=== PATIENT | female | born 1940 | race Caucasian/White ===

== ENCOUNTER → 2017-07-19 | Outpatient (CLI) | payer OTHER | LOC: CIMAGING 08:49 | PROVIDERS: ATTEND Family Medicine | DX: I51.7 Cardiomegaly (principal); K74.60 Unspecified cirrhosis of liver; K76.0 Fatty (change of) liver, not elsewhere classified; R18.8 Other ascites | CPT/HCPCS: 71046-PO; 76700-PO ==

== ENCOUNTER → 2017-10-19 | Outpatient (CLI) | payer OTHER ==
[~2017-10-19] MED LIST: GADOBUTROL 10 ML VIAL IVP ONE
== END ==
LOC: FIMAGING 10:26
PROVIDERS: ATTEND Internal Medicine Hematology & Oncology
DX: Z12.39 Encounter for other screening for malignant neoplasm of breast (principal); C78.5 Secondary malignant neoplasm of large intestine and rectum
CPT/HCPCS: 0159T; A9585; C8908

== ENCOUNTER 2017-11-01 07:31 | Day surgery (SDC) | payer OTHER ==
[~2017-11-01 07:31] MED LIST changes: -GADOBUTROL 10 ML VIAL IVP ONE; +ceFAZolin 2 GM/SWFI 2 GM/20 ML SYR IVP ONE
[2017-11-01] MEDS ORDERED: fentaNYL 100 MCG/2 ML INJ IVP PRN (09:00)
[2017-11-01] MEDS ORDERED: HEPARIN 10,000 UNIT/10 ML MDV (1,000 UNIT/ML) IVP PRN (09:00)
[2017-11-01] MEDS ORDERED: GLUCAGON HCL 1 MG VIAL IVP PRN (09:00)
[2017-11-01] MEDS ORDERED: MIDAZOLAM 2 MG/2 ML VIAL IVP PRN (09:00)
[2017-11-01] MEDS ORDERED: PROTAMINE SULFATE 50 MG/5 ML VIAL IVP PRN (09:00)
[2017-11-01] MEDS ORDERED: ALTEPLASE 2 MG VIAL IVP PRN (09:00)
[2017-11-01] MEDS ORDERED: FLUMAZENIL 0.5 MG/5 ML MDV IVP PRN (09:00)
[2017-11-01] MEDS ORDERED: MEPERIDINE 25 MG/ML SYR IVP PRN (09:00)
[2017-11-01] MEDS ORDERED: NALOXONE HCL 0.4 MG/ML INJ IVP PRN (09:00)
[2017-11-01] MEDS ORDERED: NS 1,000 ML IV SCH (09:00)
[2017-11-01 10:31] LABS: INR 1.11 (0.83-1.16); PROTIME(PATIENT) 14.5 SEC (12.0-15.0)
[2017-11-01] MEDS ORDERED: ceFAZolin 2 GM/SWFI 20 ML SYR IVP ONE ×2 (10:32→12:27)
[2017-11-01] MEDS ORDERED: fentaNYL 100 MCG/2 ML INJ ONE (10:47)
[2017-11-01] MEDS ORDERED: ONDANSETRON 4 MG/2 ML VIAL ONE (10:47)
[2017-11-01] MEDS ORDERED: MIDAZOLAM 2 MG/2 ML VIAL ONE ×2 (10:47)
--- NOTE | 2017-11-01 11:20 | PDPROPOC ---
Sedation Plan of Care Sedation Plan of Care: vital signs stable, mental status noted, patient educated of risks, benefits, alternatives, patient can tolerate sedation ASA Classification: ASA 3 Mallampati Score: Class 3 Mallampati Reference Image:
--- NOTE | 2017-11-01 11:21 | PDGENHP ---
History & Physical Chief Complaint: recurrent ascites History of Present Illness: metastatic ca Relevant Physical Exam: distended, nontender abdomen Cardiorespiratory Assessment: rrr, nl wob
[2017-11-01] MEDS ORDERED: LIDOCAINE 1% 300 MG/30 ML SDV ONE (11:36)
[2017-11-01] MEDS ORDERED: ONDANSETRON 4 MG/2 ML VIAL IVP ONE (11:38)
[2017-11-01] MEDS ORDERED: ACETAMINOPHEN 325 MG TAB PO PRN (11:50)
--- NOTE | 2017-11-01 11:53 | PDRADPN ---
Radiology Procedure Note Date of Procedure: 11/01/17 Radiologist: Demetrius Matos Anesthesia: IV Sedation Pre-op Diagnosis: malignant ascites Post-op Diagnosis: same Indication: palliative Procedure: abdominal pleurx Finding(s): large vol ascites. accessed RLQ Inf/Abcess present in the surg proc area at time of surgery?: No EBL: Minimal Complications: none Drains: Other (pleurx)
[2017-11-01] MEDS ORDERED: ALBUMIN 25% 200 ML IV ONE (12:24)
[2017-11-01 14:05] VITALS: BP 93/43
== END 2017-11-01 13:55 | disposition home or self-care (01) ==
LOC: FIMAGING 07:31
PROVIDERS: ATTEND Internal Medicine Hematology & Oncology
PROC: 0W9930Z Drainage of Right Pleural Cavity with Drainage Device, Percutaneous Approach (ICD-10-PCS; principal; 2017-11-01 12:20)
DX: R18.0 Malignant ascites (principal)
CPT/HCPCS: C2617; J0690; J2250; J2405; J3010; P9047

== ENCOUNTER 2017-11-15 17:26 | Inpatient (IN) | payer OTHER ==
[2017-11-15] MEDS ORDERED: NS 1,000 ML IV ONE (18:22)
--- NOTE | 2017-11-15 18:22 | EDPHY ---
HPI/HX/ROS/PE/MDM Narrative: CHIEF COMPLAINT: High potassium HPI: The patient is a 76 y/o female with a history of metastatic breast cancer (on oral chemotherapy), cirrhosis, and diabetes arriving at the request of her oncologist, Dr. Rico, for a potassium of 6.3. Patient's daughter denies history of prior potassium problems. For the past several days the patient has felt more tired than normal and has had diarrhea, which they attributed to the chemotherapy. Today the patient went to a routine nursing appointment when the nurse noticed that the patient had high potassium. While in the waiting room at the emergency department, the patient went to the bathroom and subsequently became pale, cold, diaphoretic, and lost some of her vision. Per her daughter, the patient is normally talkative and was not complaining of any pain or abnormal symptoms prior to arrival. Patient's daughter denies patient receiving any new or abnormal medications. At the time of my examination, the patient states she is tired but not in pain. Denies chest pain, shortness of breath, abdominal pain, fever. REVIEW OF SYSTEMS: Aside from elements discussed in the HPI, a comprehensive 10-point review of systems was reviewed and is negative. PMH: Metastatic breast cancer, abdominal wall mets, non-alcoholic cirrhosis, diabetes SOCIAL HISTORY: Daughter at bedside, lives in [place], retired PHYSICAL EXAM: General: Patient is lethargic, follows commands but is slow to respond. ENT: 3mm reactive pupils. ENT inspection normal. Neck: Normal inspection. Full range of motion. Respiratory: No respiratory distress. Breath sounds normal bilaterally. Cardiovascular: Regular rate and rhythm. Strong peripheral pulses. Normal cap refill. Abdomen: The abdomen is nontender to palpation. There are no peritoneal signs. There are normal bowel sounds. Back: Normal to inspection. No tenderness to palpation. Skin: Pale. No rash. Warm and dry. Extremities: Normal appearance. Full range of motion. Neuro: Oriented x3. Normal motor function. Normal sensory function. ED Course: 1812: EKG was ordered and interpreted by myself. Please see [email or web address] system for official reading. 1832: Patient is in acute renal failure (creatinine of 2.7) with a high potassium of 5.6 and glucose of 54; 12.5gm IV D5 and 1L IV NS administered. 0: I spoke with radiologist who reports patient's head CT is negative. 194: Reassessed patient, she is now having a normal conversation with her daughter. Patient and her daughter are comfortable with plan for admission. 1950: Consulted with hospitalist service, Dr. Bravo accepts admission of this patient. MDM: This patient presents with acute renal failure and likely resultant hyperkalemia , thankfully without ECG changes. Her daughter noted a quite severe change in mental status on arrival to the ED which prompted adminstration of D50 and a CTH which is thankfully negative. Patient seemed to respond to IVNS and now appears much clearer. Daughter states patient had meeting with her oncologist and wants to be DNR/DNI but does not have paperwork with her. - Data Points Imaging Results: Imaging Impressions Head CT 11/15/17 18:33 Impression: 1. No acute intracranial findings. If symptoms persist and clinical suspicion warrants, consider MRI. 2. Diffuse cerebral atrophy, with periventricular and subcortical low attenuation consistent with chronic microvascular ischemic gliosis. Findings discussed with Hudson Lamar M.D., on November 15, 2017 at 1900. Chest X-Ray 11/15/17 19:01 Impression: Mild peribronchial thickening, which could be related to minimal fluid overload or bronchitis/airways disease. Imaging: Discussed imaging studies w/ feed mixer Radiologist, I viewed and interpreted images myself Laboratory Results: Laboratory Results 11/15/17 18:26 11/15/17 18:26 11/15/17 11/15/17 11/15/17 18:31 18:26 18:26 WBC RBC Hgb POC Hgb 11.6 gm/dL L gm/dL (12.6-16.3) Hct POC Hct 34 % L % (38-47) MCV MCH MCHC RDW Plt Count MPV Neut % (Auto) Lymph % (Auto) [place] % (Auto) Eos % (Auto) Baso % (Auto) Nucleat RBC Rel Count Absolute Neuts (auto) Absolute Lymphs (auto) Absolute Monos (auto) Absolute Eos (auto) Absolute Basos (auto) Absolute Nucleated RBC Immature Gran % Seg Neutrophils % Band Neutrophils % Lymphocytes % Monocytes % Eosinophils % Basophils % Metamyelocytes % Myelocytes % Promyelocytes % Blast Cells % Immature Gran # Absolute Seg Neuts Absolute Band Neuts Absolute Lymphocytes Absolute Monocytes Absolute Eosinophils Absolute Basophils Absolute Metamyelocyte Absolute Myelocytes Absolute Promyelocytes Absolute Plasma Cells Absolute Blast Cells Plasma Cells % Platelet Estimate Polychromasia Oval Macrocytes PT 13.9 SEC SEC (12.0-15.0) INR 1.05 (0.83-1.16) APTT 27.7 SEC SEC (23.0-38.0) POC Sodium 135 mEq/L mEq/L (135-145) Sodium 133 mEq/L L mEq/L (135-145) POC Potassium 5.6 mEq/L H mEq/L (3.3-5.0) Potassium 6.2 mEq/L H mEq/L (3.3-5.0) POC Chloride 104 mEq/L mEq/L (97-110) Chloride 103 mEq/L mEq/L (97-110) Carbon Dioxide 20 mEq/l L mEq/l (22-31) Anion Gap 10 mEq/L mEq/L (8-16) POC BUN 76 mg/dL H mg/dL (7-23) BUN 74 mg/dL H mg/dL (7-23) Creatinine 2.4 mg/dL H mg/dL (0.6-1.0) POC Creatinine 2.7 mg/dL H mg/dL (0.6-1.0) Estimated GFR 20 Glucose 50 mg/dL L mg/dL (70-100) POC Glucose 54 mg/dL L mg/dL (70-100) Calcium 8.2 mg/dL L mg/dL (8.5-10.4) 11/15/17 18:26 WBC 2.50 10^3/uL L 10^3/uL (3.80-9.50) RBC 3.41 10^6/uL L 10^6/uL (4.18-5.33) Hgb 11.9 g/dL L g/dL (12.6-16.3) POC Hgb Hct 35.4 % L % (38.0-47.0) POC Hct MCV 103.8 fL H fL (81.5-99.8) MCH 34.9 pg H pg (27.9-34.1) MCHC 33.6 g/dL g/dL (32.4-36.7) RDW 14.6 % % (11.5-15.2) Plt Count 192 10^3/uL 10^3/uL (150-400) MPV 10.6 fL fL (8.7-11.7) Neut % (Auto) 49.2 % % (39.3-74.2) Lymph % (Auto) 46.8 % H % (15.0-45.0) [place] % (Auto) 2.0 % L % (4.5-13.0) Eos % (Auto) 0.0 % L % (0.6-7.6) Baso % (Auto) 1.2 % % (0.3-1.7) Nucleat RBC Rel Count 0.0 % % (0.0-0.2) Absolute Neuts (auto) 1.23 10^3/uL L 10^3/uL (1.70-6.50) Absolute Lymphs (auto) 1.17 10^3/uL 10^3/uL (1.00-3.00) Absolute Monos (auto) 0.05 10^3/uL L 10^3/uL (0.30-0.80) Absolute Eos (auto) 0.00 10^3/uL L 10^3/uL (0.03-0.40) Absolute Basos (auto) 0.03 10^3/uL 10^3/uL (0.02-0.10) Absolute Nucleated RBC 0.00 10^3/uL 10^3/uL (0-0.01) Immature Gran % 0.8 % % (0.0-1.1) Seg Neutrophils % 49.5 % % Band Neutrophils % 0 % % Lymphocytes % 44.5 % % Monocytes % 2.0 % % Eosinophils % 0 % % Basophils % 4.0 % % Metamyelocytes % 0 % % Myelocytes % 0 % % Promyelocytes % 0 % % Blast Cells % 0 % % Immature Gran # 0.02 10^3/uL 10^3/uL (0.00-0.10) Absolute Seg Neuts 1.24 10^/uL L 10^/uL (1.70-6.50) Absolute Band Neuts 0.00 10^3/uL 10^3/uL (0.00-0.70) Absolute Lymphocytes 1.11 10^3/uL 10^3/uL (1.00-3.00) Absolute Monocytes 0.05 10^3/uL L 10^3/uL (0.30-0.80) Absolute Eosinophils 0.00 10^3/uL L 10^3/uL (0.03-0.40) Absolute Basophils 0.10 10^3/uL 10^3/uL (0.02-0.10) Absolute Metamyelocyte 0.00 10^3/mL 10^3/mL (0.00-0.00) Absolute Myelocytes 0.00 10^3/mL 10^3/mL (0.00-0.00) Absolute Promyelocytes 0.00 10^3/uL 10^3/uL (0.00-0.00) Absolute Plasma Cells 0.00 10^3/uL 10^3/uL (0.00-0.00) Absolute Blast Cells 0.00 10^3/uL 10^3/uL (0.00-0.00) Plasma Cells % 0 % % Platelet Estimate ADEQUATE (ADEQ) Polychromasia 1+ H Oval Macrocytes 1+ H PT INR APTT POC Sodium Sodium POC Potassium Potassium POC Chloride Chloride Carbon Dioxide Anion Gap POC BUN BUN Creatinine POC Creatinine Estimated GFR Glucose POC Glucose Calcium Medications Given: Discontinued Medications Dextrose (Dextrose 50% Syringe) 12.5 gm IVP EDNOW ONE Stop: 11/15/17 18:36 Last Admin: 11/15/17 18:45 Dose: 12.5 gm Sodium Chloride (Ns) 1,000 mls @ 0 mls/hr IV EDNOW ONE; Wide Open PRN Reason: Protocol Stop: 11/15/17 18:23 Last Admin: 11/15/17 18:45 Dose: 1,000 mls Point of Care Test Results: Chemistry 11/15/17 18:31 POC Sodium 135 mEq/L mEq/L (135-145) POC Potassium 5.6 mEq/L H mEq/L (3.3-5.0) POC Chloride 104 mEq/L mEq/L (97-110) POC BUN 76 mg/dL H mg/dL (7-23) POC Creatinine 2.7 mg/dL H mg/dL (0.6-1.0) POC Glucose 54 mg/dL L mg/dL (70-100) ISTAT H&H 11/15/17 18:31 POC Hgb 11.6 gm/dL L gm/dL (12.6-16.3) POC Hct 34 % L % (38-47) General Time Seen by Provider: 11/15/17 18:21 Initial Vital Signs: Initial Vital Signs Temperature (C) 36.3 C 11/15/17 17:32 Heart Rate 60 11/15/17 17:32 Respiratory Rate 16 11/15/17 17:32 Blood Pressure 124/44 H 11/15/17 17:32 O2 Sat (%) 95 11/15/17 17:32 O2 Delivery Mode Room Air Allergies/Adverse Reactions: codeine Allergy (Severe, Verified 11/15/17 17:30) Vomiting Opioids - Morphine Analogues Allergy (Mild, Verified 11/15/17 17:30) Vomiting Home Medications: Medication Instructions Recorded Gabapentin [Neurontin 300 MG (*)] 300 mg PO BID 10/31/17 Glimepiride [Amaryl] 4 mg PO BID 10/31/17 Losartan Potassium 100 mg PO DAILY@18 10/31/17 Metoprolol Tartrate [Lopressor 50 50 mg PO BID 10/31/17 mg (*)] Pantoprazole Sodium [Protonix 40mg 40 mg PO HS 10/31/17 (*)] Pioglitazone HCl 45 mg PO DAILY 10/31/17 Letrozole [Femara 2.5 mg (*)] 2.5 mg PO HS 11/15/17 Palbociclib [Ibrance] 125 mg PO HS 11/15/17 Departure - Departure Disposition: [facility] Inpatient Acute Clinical Impression: Hyperkalemia, Metastatic breast cancer Acute renal failure Qualifiers: Acute renal failure type: unspecified Qualified Code(s): N17.9 - Acute kidney failure, unspecified Altered mental status Qualifiers: Altered mental status type: unspecified Qualified Code(s): R41.82 - Altered mental status, unspecified Condition: Fair Report Scribed for: Hudson Lamar Report Scribed by: Pia Camejo Date of Report: 11/15/17 Time of Report: 18:22 Physician Review and Approval Statement: Portions of this note were transcribed by an ED scribe. I personally performed the history, physical exam, and medical decision making; and confirm the accuracy of the information in the transcribed note.
[2017-11-15] MEDS ORDERED: D50W 25 GM/50 ML SYR IVP ONE ×2 (18:35)
[2017-11-15 18:36] LABS: PLATELET COUNT 192 10^3/uL (150-400)
[2017-11-15 18:46] LABS: INR 1.05 (0.83-1.16); PROTIME(PATIENT) 13.9 SEC (12.0-15.0)
--- NOTE | 2017-11-15 19:03 | CPEKG ---
Heart Rate: 58 RR Interval: 1034 P-R Interval: 152 QRSD Interval: 94 QT Interval: 492 QTC Interval: 484 P Lyle: -13 QRS Lyle: -53 T Wave Lyle: 58 EKG Severity - ABNORMAL ECG - EKG Impression: SINUS RHYTHM EKG Impression: LEFT ANTERIOR FASCICULAR BLOCK EKG Impression: CONSIDER LEFT VENTRICULAR HYPERTROPHY Electronically Signed By: Madalyn Browne 17-Nov-2017 08:39:19
[2017-11-15] MEDS ORDERED: NS 500 ML IV ONE (19:50)
[2017-11-15] MEDS ORDERED: ONDANSETRON DISINTEGRATING 4 MG TAB PO PRN (22:41)
[2017-11-15] MEDS ORDERED: ONDANSETRON 4 MG/2 ML VIAL IVP PRN (22:41)
[2017-11-15] MEDS ORDERED: D50W 25 GM/50 ML VIAL IVP PRN (22:42)
[2017-11-15] MEDS: ACETAMINOPHEN 325 MG TAB PO PRN (23:28)
[2017-11-16] MEDS: PANTOPRAZOLE SODIUM 40 MG TAB PO SCH ×2 (01:02→21:26)
[2017-11-16] MEDS: PALBOCICLIB 125 MG PO SCH ×2 (01:02→10:23)
[2017-11-16] MEDS: LETROZOLE 2.5 MG TAB PO SCH ×3 (01:02→21:26)
--- NOTE | 2017-11-16 01:26 | PDGENHP ---
History and Physical - Chief Complaint Diarrhea - History of Present Illness 76 yo F w/ metastatic breast CA, cirrhosis, and DM presents from clinic with abnormal labs. Patient states she has been having diarrhea for the last few days. This has actually resolved mostly as of now. She also drains ~1 L daily from her abdominal drain. She presented to oncologist who checked labs and noted TARAH and hyperkalemia so she was sent to the ED. Aside from the diarrhea she has felt fatigued and lightheaded. She takes oral diabetes medication but did not think to check her blood glucose during the last few days. She is feeling improved after receiving IV fluids in the ED. History Information - Allergies/Home Medication List Allergies/Adverse Reactions: codeine Allergy (Severe, Verified 11/15/17 17:30) Vomiting Opioids - Morphine Analogues Allergy (Mild, Verified 11/15/17 17:30) Vomiting Home Medications: Gabapentin [Neurontin 300 MG (*)] 300 mg PO BID 10/31/17 [Last Taken 11/15/17] Glimepiride [Amaryl] 4 mg PO BID 10/31/17 [Last Taken 11/15/17] Losartan Potassium 100 mg PO DAILY@18 10/31/17 [Last Taken 11/14/17] Metoprolol Tartrate [Lopressor 50 mg (*)] 50 mg PO BID 10/31/17 [Last Taken 10/28] Pantoprazole Sodium [Protonix 40mg (*)] 40 mg PO HS 10/31/17 [Last Taken Unknown ] Pioglitazone HCl 45 mg PO DAILY 10/31/17 [Last Taken 11/15/17] Letrozole [Femara 2.5 mg (*)] 2.5 mg PO HS 11/15/17 [Last Taken 11/14/17] Palbociclib [Ibrance] 125 mg PO HS 11/15/17 [Last Taken 11/14/17] I have personally reviewed and updated: family history, medical history - Past Medical History cancer, diabetes type 2 Additional medical history: Cirrhosis - Surgical History Reports: appendectomy, hysterectomy - Family History Positive for: cancer - Social History Smoking Status: Former smoker Review of Systems Review of Systems: ROS: 10pt was reviewed & negative except for what was stated in HPI & below Physical Exam Physical Exam: Temp Pulse Resp BP Pulse Ox 35.1 C L 65 20 156/55 H 100 11/15/17 23:39 11/15/17 23:39 11/15/17 23:39 11/15/17 23:39 11/15/17 23:39 O2 (L/minute) 2 Constitutional: not in pain, obese Eyes: PERRL, EOMI Ears, Nose, Mouth, Throat: moist mucous membranes, no oral mucosal ulcers Cardiovascular: regular rate and rhythym, systolic murmur Respiratory: no respiratory distress, reduced air movement Gastrointestinal: normoactive bowel sounds, soft, non-tender abdomen, other ( Abdominal drain in place, dressing c/d/i) Skin: warm, normal color Musculoskeletal: full muscle strength, no muscle tenderness Neurologic: AAOx3, CN II-XII Intact Psychiatric: interacting appropriately, not anxious Lab Data & Imaging Review 11/15/17 18:11/15/17 18: WBC 2.50 10^3/uL (3.80-9.50) L 11/15/17 18: RBC 3.41 10^6/uL (4.18-5.33) L 11/15/17 18: Hgb 11.9 g/dL (12.6-16.3) L 11/15/17 18: POC Hgb 11.6 gm/dL (12.6-16.3) L 11/15/17 18:31 Hct 35.4 % (38.0-47.0) L 11/15/17 18: POC Hct 34 % (38-47) L 11/15/17 18: MCV 103.8 fL (81.5-99.8) H 11/15/17 18: MCH 34.9 pg (27.9-34.1) H 11/15/17 18: MCHC 33.6 g/dL (32.4-36.7) 11/15/17 18: RDW 14.6 % (11.5-15.2) 11/15/17 18: Plt Count 192 10^3/uL (150-400) 11/15/17 18: MPV 10.6 fL (8.7-11.7) 11/15/17 18: Neut % (Auto) 49.2 % (39.3-74.2) 11/15/17 18: Lymph % (Auto) 46.8 % (15.0-45.0) H 11/15/17 18: [place] % (Auto) 2.0 % (4.5-13.0) L 11/15/17 18: Eos % (Auto) 0.0 % (0.6-7.6) L 11/15/17 18: Baso % (Auto) 1.2 % (0.3-1.7) 11/15/17 18: Nucleat RBC Rel Count 0.0 % (0.0-0.2) 11/15/17 18: Absolute Neuts (auto) 1.23 10^3/uL (1.70-6.50) L 11/15/17 18: Absolute Lymphs (auto) 1.17 10^3/uL (1.00-3.00) 11/15/17 18: Absolute Monos (auto) 0.05 10^3/uL (0.30-0.80) L 11/15/17 18: Absolute Eos (auto) 0.00 10^3/uL (0.03-0.40) L 11/15/17 18: Absolute Basos (auto) 0.03 10^3/uL (0.02-0.10) 11/15/17: Absolute Nucleated RBC 0.00 10^3/uL (0-0.01) 11/15/17 18: Immature Gran % 0.8 % (0.0-1.1) 11/15/17 18: Seg Neutrophils % 49.5 % 11/15/17 18: Band Neutrophils % 0 % 11/15/17 18: Lymphocytes % 44.5 % 11/15/17 18: Monocytes % 2.0 % 11/15/17 18: Eosinophils % 0 % 11/15/17 18: Basophils % 4.0 % 11/15/17 18: Metamyelocytes % 0 % 11/15/17 18: Myelocytes % 0 % 11/15/17 18: Promyelocytes % 0 % 11/15/17 18: Blast Cells % 0 % 11/15/17 18: Immature Gran # 0.02 10^3/uL (0.00-0.10) 11/15/17 18:26 Absolute Seg Neuts 1.24 10^/uL (1.70-6.50) L 11/15/17 18: Absolute Band Neuts 0.00 10^3/uL (0.00-0.70) 11/15/17 18: Absolute Lymphocytes 1.11 10^3/uL (1.00-3.00) 11/15/17 18: Absolute Monocytes 0.05 10^3/uL (0.30-0.80) L 11/15/17 18: Absolute Eosinophils 0.00 10^3/uL (0.03-0.40) L 11/15/17 18: Absolute Basophils 0.10 10^3/uL (0.02-0.10) 11/15/17 18: Absolute Metamyelocyte 0.00 10^3/mL (0.00-0.00) 11/15/17 18: Absolute Myelocytes 0.00 10^3/mL (0.00-0.00) 11/15/17 18: Absolute Promyelocytes 0.00 10^3/uL (0.00-0.00) 11/15/17 18: Absolute Plasma Cells 0.00 10^3/uL (0.00-0.00) 11/15/17 18: Absolute Blast Cells 0.00 10^3/uL (0.00-0.00) 11/15/17 18: Plasma Cells % 0 % 11/15/17 18: Platelet Estimate ADEQUATE (ADEQ) 11/15/17 18: Polychromasia 1+ H 11/15/17 18: Oval Macrocytes 1+ H 11/15/17 18: PT 13.9 SEC (12.0-15.0) 11/15/17 18: INR 1.05 (0.83-1.16) 11/15/17 18: APTT 27.7 SEC (23.0-38.0) 11/15/17 18: POC Sodium 135 mEq/L (135-145) 11/15/17 18:31 Sodium 133 mEq/L (135-145) L 11/15/17 18:26 POC Potassium 5.6 mEq/L (3.3-5.0) H 11/15/17 18:31 Potassium 6.2 mEq/L (3.3-5.0) H 11/15/17 18:26 POC Chloride 104 mEq/L (97-110) 11/15/17 18:31 Chloride 103 mEq/L (97-110) 11/15/17 18: Carbon Dioxide 20 mEq/l (22-31) L 11/15/17 18:26 Anion Gap 10 mEq/L (8-16) 11/15/17 18:26 POC BUN 76 mg/dL (7-23) H 11/15/17 18:31 BUN 74 mg/dL (7-23) H 11/15/17 18:26 Creatinine 2.4 mg/dL (0.6-1.0) H 11/15/17 18: POC Creatinine 2.7 mg/dL (0.6-1.0) H 11/15/17 18:31 Estimated GFR 20 11/15/17 18:26 Glucose 50 mg/dL (70-100) L 11/15/17 18: POC Glucose 115 mg/dL (70-100) H 11/15/17 23:50 Calcium 8.2 mg/dL (8.5-10.4) L 11/15/17 18: POC Troponin I 0.02 ng/mL (0.00-0.08) 11/15/17 19:42 Urine Color YELLOW 11/15/17 20: Urine Appearance HAZY 11/15/17 20: Urine pH 5.0 (5.0-7.5) 11/15/17 20:26 Ur Specific [place] 1.014 (1.002-1.030) 11/15/17 20: Urine Protein NEGATIVE (NEGATIVE) 11/15/17 20: Urine Ketones NEGATIVE (NEGATIVE) 11/15/17 20: Urine Blood 2+ (NEGATIVE) H 11/15/17 20:26 Urine Nitrate NEGATIVE (NEGATIVE) 11/15/17 20: Urine Bilirubin NEGATIVE (NEGATIVE) 11/15/17 20: Urine Urobilinogen NEGATIVE EU (0.2-1.0) 11/15/17 20:26 Ur Leukocyte Esterase 1+ (NEGATIVE) H 11/15/17 20:26 Urine RBC 1-3 /hpf (0-3) 11/15/17 20: Urine WBC 5-10 /hpf (0-3) H 11/15/17 20:26 Ur Epithelial Cells TRACE /lpf (NONE-1+) 11/15/17 20:26 Urine Bacteria 2+ /hpf (NONE SEEN) H 11/15/17 20:26 Hyaline Casts 1-5 /lpf (0-1) 11/15/17 20:26 Urine Glucose NEGATIVE (NEGATIVE) 11/15/17 20:26 Imaging Review: Imaging Impressions Head CT 11/15/17 18:33 Impression: 1. No acute intracranial findings. If symptoms persist and clinical suspicion warrants, consider MRI. 2. Diffuse cerebral atrophy, with periventricular and subcortical low attenuation consistent with chronic microvascular ischemic gliosis. Findings discussed with Hudson Lamar M.D., on November 15, 2017 at 1900. Chest X-Ray 11/15/17 19:01 Impression: Mild peribronchial thickening, which could be related to minimal fluid overload or bronchitis/airways disease. Visualized and Interpreted Chest x-ray results: Yes Chest X-Ray results: no infiltrate Visualized and Interpreted EKG results: Yes EKG Interpretation: Positive for: normal sinsus rhythm, other (LAFB, poor R wave progression, no peaked T waves) Assessment & Plan Assessment: 76 yo F w/ metastatic breast CA p/w fatigue and malaise found to have TARAH. Plan: 1. TARAH - Creatinine 2.4 on admission increased from normal baseline. Clinical picture is consistent with pre-renal azotemia noting diarrhea for last few days in conjunction with daily output from abdominal drain (~1 L). - S/p IVF, will check FeNa - Recheck BMP in AM - Renally dose meds - Hold oral DM agents, ARB, and gabapentin until GFR improves - Case discussed with Dr. Bravo 2. Hyperkalemia - 2/2 above in conjunction with ARB; no ECG changes at this time (personally interpreted). - S/p IVF, recheck BMP in AM - Hold ARB 3. NIDDM c/b hypoglycemia - I suspect hypoglycemia is at least partly responsible for fatigue and malaise. TARAH led to poor clearance of oral DM meds and precipitated hypoglycemia. - Hold DM meds for now - Monitor BG ACHS and treat hypoglycemia as necessary 4. Metastatic breast CA - On oral chemotherapy; has abdominal drain in place for recurrent ascites. Diet - Renal Code - Full Ppx - SQH Dispo - Admit under inpatient status
[2017-11-16 04:32] LABS: PLATELET COUNT 147 10^3/uL (150-400)
[2017-11-16] MEDS ORDERED: NS 1,000 ML IV ONE (04:44)
[2017-11-16] MEDS ORDERED: SODIUM POLY SULF 15 GM/60 ML BOTTLE PO ONE (05:11)
[2017-11-16] MEDS ORDERED: CALCIUM GLUCONATE 2 GM in D5W 50 ML IV ONE (05:12)
[2017-11-16] MEDS: HEPARIN 5,000 UNIT/0.5 ML INJ SC SCH ×3 (05:22→21:30)
--- NOTE | 2017-11-16 08:11 | PDMN ---
Medical Necessity Medical necessity: MCG: M326 ARF- 3 days: hyperkalemia 6.6, Cr 2.4, abdominal drain with 1L outpt /daily, diarrhea, hypoglycemia, in high risk pt with met. Br. Ca on oral chemo., further monitoring and tx needed anticipate > 2 midnights
--- NOTE | 2017-11-16 10:33 | HOSPPROG ---
Hospitalist Progress Note Assessment/Plan: 76 yo F w metastatic breast CA here w diarrhea, TARAH, hyperkalemia hyperkalemia: TARAH plus ARB IVF hold arb received kayexalate repeat ordered TARAH: volume related IVF hold bp meds hold on draining ascites neuropathy: resume gabapentin ascites: malignant hold on drainage bellly not tense breast CA; continue po chemo diarrhea: check cdiff if presisent dispoL :inpt Subjective: tele: no events (interp by me). ekg no peakedm T's and normal width qrs (interp by me) Objective: Vital Signs Temp Pulse Resp BP Pulse Ox 36.4 C 68 18 102/46 L 98 11/16/17 04:00 11/16/17 04:00 11/16/17 04:00 11/16/17 05:24 11/16/17 04:00 Laboratory Results 11/16/17 03:57 11/16/17 03:57 11/15/17 11/16/17 11/17/17 05:59 05:59 05:59 Intake Total 2875 70 Output Total 225 Balance 2650 70 PT 13.9 SEC (12.0-15.0) 11/15/17 18:26 INR 1.05 (0.83-1.16) 11/15/17 18:26 - Physical Exam Constitutional: no apparent distress, appears nourished Eyes: PERRL, anicteric sclera Ears, Nose, Mouth, Throat: moist mucous membranes, hearing normal Cardiovascular: regular rate and rhythym, no murmur, rub, or gallop Respiratory: no respiratory distress, no rales or rhonchi Gastrointestinal: normoactive bowel sounds, soft, non-tender abdomen, other ( drain c/d/i) Genitourinary: No joseph in urethra Skin: warm, normal color Musculoskeletal: full muscle strength Neurologic: AAOx3 ICD10 Worksheet Patient Problems: Problems Problem Status Onset Acute renal failure Acute Altered mental status Acute Hyperkalemia Acute Metastatic breast cancer Acute
[2017-11-16] MEDS ORDERED: NS 1,000 ML IV SCH (10:45)
[2017-11-16] MEDS: GABAPENTIN 300 MG CAP PO SCH ×2 (12:24→21:26)
--- NOTE | 2017-11-16 16:37 | ASMTCMCOM ---
CM Note CM Note Notes: 11/16/2017 Case Management Note Discussed pt during rounds this morning. Pt admitted for ARF, hyperkalemia, breast cancer with mets to the abdomen. Attempted to meet with pt multiple times today. Pt requesting meeting tomorrow to discuss discharge needs. Case Management d/c poc: to be determined. Case Management to follow. Date Signed: 11/16/2017 04:36 PM Electronically Signed By:Deedee Edwards RN
[2017-11-16] MEDS: ACETAMINOPHEN 325 MG TAB PO PRN (19:00)
[2017-11-17] MEDS: HEPARIN 5,000 UNIT/0.5 ML INJ SC SCH ×2 (05:55→14:26)
[2017-11-17] MEDS: GABAPENTIN 300 MG CAP PO SCH (08:20)
--- NOTE | 2017-11-17 09:09 | HOSPPROG ---
Hospitalist Progress Note Assessment/Plan: 76 yo F w metastatic breast CA here w diarrhea, TARAH, hyperkalemia hyperkalemia: TARAH plus ARB IVF hold arb received kayexalate trending down hypoglycemia: sulfonurea on hold TARAH: volume related IVF stopped last night given ascites follow continue to hold ARB neuropathy: resume gabapentin ascites: malignant hold on drainage bellly not tense breast CA; continue po chemo diarrhea: check cdiff if presisent proph: lmwh dispo: inpt Subjective: drained son drain yesterday. borderline w OT. tele: no events ( interp by me) Objective: Vital Signs Temp Pulse Resp BP Pulse Ox 37.0 C 96 12 114/62 97 11/17/17 07:32 11/17/17 07:32 11/17/17 07:32 11/17/17 07:32 11/17/17 07:32 Laboratory Results 11/16/17 03:57 11/17/17 03:50 11/16/17 11/17/17 11/18/17 05:59 05:59 05:59 Intake Total 2875 2250 Output Total 225 3175 100 Balance 2650 -925 -100 PT 13.9 SEC (12.0-15.0) 11/15/17 18:26 INR 1.05 (0.83-1.16) 11/15/17 18:26 - Physical Exam Constitutional: no apparent distress, appears nourished Eyes: PERRL, anicteric sclera Ears, Nose, Mouth, Throat: moist mucous membranes, hearing normal Cardiovascular: regular rate and rhythym, no murmur, rub, or gallop Respiratory: no respiratory distress, no rales or rhonchi Gastrointestinal: normoactive bowel sounds, soft, non-tender abdomen Genitourinary: no bladder fullness, No joseph in urethra Skin: warm, normal color Musculoskeletal: full muscle strength Neurologic: AAOx3 ICD10 Worksheet Patient Problems: Problems Problem Status Onset Acute renal failure Acute Altered mental status Acute Hyperkalemia Acute Metastatic breast cancer Acute
[2017-11-17] MEDS: POLYETHYLENE GLYCOL 3350 17 GM PKT PO SCH (09:51)
[2017-11-17] MEDS: PANTOPRAZOLE SODIUM 40 MG VIAL IVP SCH (14:46)
[2017-11-17 14:53] LABS: PLATELET COUNT 144 10^3/uL (150-400)
[2017-11-17] MEDS ORDERED: NS 500 ML IV ONE ×2 (15:19→21:17)
[2017-11-17] MEDS ORDERED: ALBUMIN 25% 100 ML IV ONE (15:29)
[2017-11-17] MEDS ORDERED: OCTREOTIDE ACETATE 50 MCG/ML INJ IVP ONE (20:51)
[2017-11-17] MEDS ORDERED: OCTREOTIDE ACETATE 500 MCG in NS 50 ML IV SCH (21:00)
--- NOTE | 2017-11-17 21:02 | HOSPPROG ---
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 Started on Ibrance 6 days ago and developed diarrhea. Never has had rectal bleeding prior to today. No NSAIDs Called to bedside for increased hematochezia. Had melanic stool this morning and then developed frequent bloody stools beginning at 2pm. Now occurring q15 min with large clots and evaristo blood. No NSA S: lightheaded, no abdominal pain O: T afebrile, BP 102/93, HR 100, RR 14, 95% RA Gen: pale, fatigued HEENT: conjunctival pallor CV: tachy, regular Lung: clear anteriorly GI: mild distension, soft, no TTP. Drain in place Neuro: 2-12 intact Psych: A&Ox 3 A&P: 1. Active GIB: h/o of MASSEY/cirrhosis with varices. May be due to tumor invasion as well. -Dr. Villar will perform emergent endoscopy -start Octreotide, on IV PPI, add ppx CTX -transfuse blood now -consulted Dr. Zapata for central access 2. Tachycardia -due blood loss. Plan as above 3. Hypotension: received albumin/IVFs earlier. Transfuse now 4. HTN: hold antihypertensives 5. MASSEY-related cirrhosis: has Jeremy drain in place. Normally drains 1L daily; told not to drain today with hypotension 6. Metastatic breast cancer: hold Ibrance. Primary oncologist is Dr. Rico 7. Goals: had discussion with daughter and patient. Full code Critical care time spent: 60 min bedside with patient, reviewing labs/notes and discussing case with Dr. Villar, Dr. Zapata Objective: Vital Signs Temp Pulse Resp BP Pulse Ox 36.6 C 100 18 102/93 H 98 11/17/17 19:57 11/17/17 19:57 11/17/17 19:57 11/17/17 19:57 11/17/17 19:57 Microbiology 11/15/17 20:26 Urine Culture - Final Urine,Clean Catch Klebsiella Varicola Laboratory Results 11/17/17 14:40 11/17/17 03:50 11/16/17 11/17/17 11/18/17 05:59 05:59 05:59 Intake Total 2875 2250 1230 Output Total 225 3175 700 Balance 2650 -925 530 PT 13.9 SEC (12.0-15.0) 11/15/17 18:26 INR 1.05 (0.83-1.16) 11/15/17 18:26 - Time Spent With Patient Time Spent with Patient: greater than 35 minutes Time Spent with Patient: Greater than 35 minutes spent on this patients care, greater than 50% of time spent counseling, educating, and coordinating care regarding the above mentioned plan. ICD10 Worksheet Patient Problems: Problems Problem Status Onset Acute renal failure Acute Altered mental status Acute Hyperkalemia Acute Metastatic breast cancer Acute
[2017-11-17] MEDS ORDERED: PROPOFOL 200 MG/20 ML VIAL ONE (21:34)
[2017-11-17] MEDS ORDERED: fentaNYL 100 MCG/2 ML INJ ONE (21:34)
[2017-11-17] MEDS ORDERED: ROCURONIUM 100 MG/10 ML VIAL ONE (21:43)
[2017-11-17] MEDS ORDERED: LIDOCAINE 2% 5 ML SDV ONE (21:43)
[2017-11-17] MEDS ORDERED: EPINEPHrine 1 MG/ML INJ SUBMUCOSAL ONE (22:26)
[2017-11-17] MEDS ORDERED: EPINEPHrine 1 MG/10 ML SYR IVP ONE (22:35)
[2017-11-17] MEDS ORDERED: ONDANSETRON 4 MG/2 ML VIAL ONE (23:50)
[2017-11-18] MEDS ORDERED: fentaNYL 100 MCG/2 ML INJ ONE (00:21)
[2017-11-18] MEDS ORDERED: ONDANSETRON 4 MG/2 ML VIAL IVP PRN (00:32)
[2017-11-18] MEDS ORDERED: PHENYLEPHRINE HCL 100 MCG/ML SYR IVP PRN (00:32)
[2017-11-18] MEDS ORDERED: NS 500 ML IV PRN (00:32)
[2017-11-18] MEDS ORDERED: NALOXONE HCL 0.4 MG/ML INJ IVP PRN (00:32)
[2017-11-18] MEDS: fentaNYL 100 MCG/2 ML INJ IVP PRN ×2 (01:15→01:32)
[2017-11-18] MEDS ORDERED: HYDROmorphone HCL/NS 0.5 MG/ML SYR IVP PRN (01:26)
[2017-11-18] MEDS: PALBOCICLIB 125 MG PO SCH ×2 (01:36→20:51)
[2017-11-18] MEDS: GABAPENTIN 300 MG CAP PO SCH ×4 (01:36→20:51)
[2017-11-18] MEDS: LETROZOLE 2.5 MG TAB PO SCH ×2 (01:36→20:51)
--- NOTE | 2017-11-18 01:41 | POSTANESTH ---
Post Anesthetic Evaluation Cardiovascular Status: Similar to Pre-Op Cond, Tx Hyper/Hypo-tension Respiratory Status: Similar to Pre-op Cond. Level of Consciousness/Mental Status: Can Participate in Eval, Alert and Oriented Pain Control: Adequate, Prn Tx Ordered Nausea/Vomiting Control: Adequate, Prn Tx Ordered Complications Possibly Related to Anesthesia: None Noted (Patient evaluated in step down unit following disposition from PACU. Patient appropriate and stable.)
[2017-11-18] MEDS: PANTOPRAZOLE SODIUM 40 MG VIAL IVP SCH ×3 (01:55→20:51)
--- NOTE | 2017-11-18 04:29 | GCON ---
[f rep st] CONSULTATION CHIEF COMPLAINT: 76-year-old woman with metastatic breast cancer, history of portal hypertension, cirrhosis secondary to MASSEY with GI bleed. HISTORY OF PRESENT ILLNESS: I have been asked to see this patient in consultation by Dr. Plummer for GI bleeding. This patient is a very pleasant 76- year-old woman with history of metastatic breast cancer and cirrhosis secondary to MASSEY. She has a longstanding history of diabetes myelitis. She was admitted to the hospital with diarrhea. She has metastatic breast cancer with intra-abdominal metastasis. She has had recurrent ascites and has had a Mclean drain placed for management. Breast cancer is metastatic to the stomach and peritoneum. As mentioned, she had developed ascites and had taken diuretic and underwent upper endoscopy with the finding of varices due to her underlying cirrhosis. She has undergone banding twice. The last banding procedure was in September. She has had no prior history of GI bleeding. She had upper endoscopy by Dr. Coates and found to have patchy, erythematous mucosa in the stomach, biopsied which was a lobular breast cancer with infiltrating of the gastric mucosa. She had a repeat procedure with biopsies again, the same results. She has had a mammogram and bilateral breast ultrasound. Did not reveal any suspicious tumors. She has no personal prior history of breast cancer. She has had a PET scan that showed peritoneal carcinomatosis and a breast MRI that was negative. She was admitted to the hospital on this occasion due to diarrhea. She started passing some black stool this afternoon. She subsequently started passing clot and bright red blood. She is feeling unwell and lightheaded, dizzy. Asked to see patient for further evaluation. PAST MEDICAL HISTORY: Remarkable for diabetes mellitus, MASSEY, metastatic breast cancer. SURGICAL HISTORY: Remarkable for appendectomy, hysterectomy, tonsillectomy, adenoidectomy. FAMILY HISTORY: Negative as it pertains to chief complaint. SOCIAL HISTORY: She is a prior smoker. No alcohol. ALLERGIES: Codeine. MEDICATIONS: Prior to admission: Gabapentin, Amaryl, losartan, metoprolol, pantoprazole, pioglitazone, letrozole or Femara, and Ibrance. REVIEW OF SYSTEMS: Negative for 10 systems other than mentioned in HPI. PHYSICAL EXAM: VITAL SIGNS: 102/93, heart rate is 100, respiratory rate 18, 98 % sat on room air, 36.7. GENERAL: Ill-appearing woman in no acute distress, very pleasant. Alert and oriented. HEENT: Normocephalic, atraumatic. EOMI. Neck is supple. No cervical adenopathy. No thyromegaly. She has a face mask on. Mucous membranes moist. LUNGS: Clear. CARDIAC: Normal S1, S2 without murmur. ABDOMEN: Soft, slightly distended, nontender. Shunt in the mid abdomen. EXTREMITIES: Without clubbing, cyanosis. She has 2+ edema lower extremity. SKIN: Warm and dry. NEURO: Nonfocal. PSYCH: Alert and oriented x3. LABORATORY DATA: Hematocrit 21.1, hemoglobin of 6.9. Serum chemistries: Serum sodium 137, chloride of 110, BUN of 55, creatinine 1.4. PT of 13.9 with INR of 1.05. IMPRESSION: 76-year-old woman with metastatic breast cancer with peritoneal carcinomatosis. She has a known history of cirrhosis with MASSEY. Has had history of esophageal varices prophylactically treated with variceal banding. She has not had prior history of GI bleeding. She also has known metastatic disease of the gastric wall which was her initial presentation of her breast cancer. Patient has history of portal hypertension. May have variceal bleed or potential bleed from metastatic cancer to of the stomach or upper intestinal tract. RECOMMENDATIONS: Patient to be transferred to a monitored bed. Serial H and H. IV Protonix. Patient will also be started on octreotide. Transfuse 2 units of packed red blood cells and proceed with emergent endoscopy. Will follow with you. Thank you for allowing to participate in the care of this patient. /[id number]/MODL MTDD
[2017-11-18 07:18] LABS: PLATELET COUNT 81 10^3/uL (150-400)
[2017-11-18] MEDS: POLYETHYLENE GLYCOL 3350 17 GM PKT PO SCH (09:01)
--- NOTE | 2017-11-18 09:36 | SOAPPROG ---
SOAP Progress Note Assessment/Plan: Assessment: Metastatic breast cancer with peritoneal carcinomatosis. Had emergent EGD last night for GI bleeding. Patient is diabetic with MASSEY and cirrhosis. She had no evidence of varices on EGD last night. She had diffuse granularity of the body and proximal antrum (previous biopsies positive for breast cancer). Several areas of oozing, treated with epinephrine injection and bicap. Also donny in duodenum with red spots and blood without discrete lesion. No Abdominal pain today and no further bleeding. Will need to have discussion with Oncologist as to further treatment. Plan: 1. Advance diet 2. Continue on high dose PPI 3. Started on Octreotide empirically during acute GI bleeding. Can discontinue. 4. Dr. Mcelroy to take over the service at 5 pm today, will make Dr. Mcelroy aware of patient. Please call with further questions. 11/18/17 09:39 Subjective: CC: Diarrhea and GI bleed Patient without further bleeding since last night. No abdominal pain reports to be thirsty. Objective: Vital Signs Temp Pulse Resp BP Pulse Ox 36.8 C 106 H 19 129/56 H 97 11/18/17 08:00 11/18/17 08:00 11/18/17 08:00 11/18/17 08:00 11/18/17 08:00 Microbiology 11/15/17 20:26 Urine Culture - Final Urine,Clean Catch Klebsiella Varicola Laboratory Results 11/18/17 05:40 11/18/17 05:40 11/17/17 11/18/17 11/19/17 05:59 05:59 05:59 Intake Total 2250 1995 Output Total 3175 1150 Balance -925 845 PT 13.9 SEC (12.0-15.0) 11/15/17 18:26 INR 1.05 (0.83-1.16) 11/15/17 18:26 Generic Name Dose Route Start Last Admin Trade Name Freq PRN Reason Stop Dose Admin Acetaminophen 650 mg 11/15/17 22:41 11/16/17 19:00 Tylenol PO 05/14/18 22:40 650 mg Q4HRS PRN Administration Pain, Mild/Fever, Can Take PO Dextrose 25 gm 11/15/17 22:42 11/16/17 04:56 Dextrose 50% Vial IVP 05/14/18 22:41 12.5 gm PRN PRN Administration Hypoglycemia Gabapentin 300 mg 11/16/17 10:30 11/18/17 09:01 Neurontin PO 05/15/18 10:29 Not Given BID RAYMOND Hydromorphone/Sodium Chloride 0.2 - 0.4 mg 11/18/17 01:26 11/18/17 05:59 Hydromorphone IVP 11/28/17 01:25 0.2 mg Q4HRS PRN Administration Pain, Severe Unable to Take PO Octreotide Acetate 500 mcg/ 51 mls @ 5 mls/hr 11/17/17 21:00 Sodium Chloride IV 05/16/18 20:59 CONT RAYMOND Ceftriaxone Sodium 2 gm/ 50 mls @ 100 mls/hr 11/17/17 21:30 11/18/17 01:16 Sodium Chloride IV 12/17/17 21:29 50 mls DAILY@2100 RAYMOND Administration Protocol Letrozole 2.5 mg 11/15/17 23:45 11/18/17 01:36 Femara PO 05/14/18 23:44 Not Given HS RAYMOND Miscellaneous Medication 125 mg 11/15/17 23:45 11/18/17 01:36 Palbociclib [Ibrance] PO 05/14/18 23:44 Not Given HS RAYMOND Ondansetron HCl 4 mg 11/15/17 22:41 11/17/17 23:57 Zofran IVP 05/14/18 22:40 4 mg Q4HRS PRN Administration Nausea/Vomiting, Can't Take PO Ondansetron HCl 4 mg 11/15/17 22:41 Zofran Odt PO 05/14/18 22:40 Q4HRS PRN Nausea/Vomiting, Use 1st Pantoprazole Sodium 40 mg 11/17/17 14:30 11/18/17 08:59 Protonix IVP 05/16/18 14:29 40 mg BID RAYMOND Administration Polyethylene Glycol 17 gm 11/17/17 09:15 11/18/17 09:01 Miralax PO 05/16/18 09:14 Not Given DAILY RAYMOND Discontinued Medications Generic Name Dose Route Start Last Admin Trade Name Freq PRN Reason Stop Dose Admin Dextrose 12.5 gm 11/15/17 18:35 11/15/17 18:45 Dextrose 50% Syringe IVP 11/15/17 18:36 12.5 gm EDNOW ONE Administration Dextrose Confirm 11/15/17 18:35 Dextrose 50% Syringe Administered 11/15/17 18:36 Dose 25 gm IVP .STK-MED ONE Ephedrine Sulfate 10 mg 11/18/17 00:32 Ephedrine Sulfate IV 11/18/17 01:32 .Q5M PRN PACU, Hypotension Epinephrine HCl Confirm 11/17/17 22:35 Epinephrine Administered 11/17/17 22:36 Dose 1 mg IVP .STK-MED ONE Epinephrine HCl 0.7 mg 11/17/17 22:26 11/17/17 22:26 Epinephrine SUBMUCOSAL 11/17/17 22:27 0.7 mg .STK-MED ONE Administration Fentanyl Confirm 11/17/17 21:34 Sublimaze Administered 11/17/17 21:35 Dose 100 mcg .ROUTE .STK-MED ONE Fentanyl Confirm 11/18/17 00:21 Sublimaze Administered 11/18/17 00:22 Dose 100 mcg .ROUTE .STK-MED ONE Fentanyl 25 - 100 mcg 11/18/17 00:32 11/18/17 01:32 Sublimaze IVP 11/18/17 01:32 25 mcg Q5M PRN Administration PACU, IMMEDIATE Pain control Heparin Sodium (Porcine) 5,000 unit 11/16/17 06:00 11/17/17 14:26 Heparin Sc Injection SC 05/15/18 05:59 Not Given Q8 RAYMOND Sodium Chloride 1,000 mls @ 0 mls/hr 11/15/17 18:22 11/15/17 18:45 Ns IV 11/15/17 18:23 1,000 mls EDNOW ONE Administration Protocol Wide Open Sodium Chloride 500 mls @ 1,500 mls/hr 11/15/17 19:50 11/15/17 20:05 Ns IV 11/15/17 20:09 500 mls ONCE ONE Administration Sodium Chloride 1,000 mls @ 0 mls/hr 11/16/17 04:44 11/16/17 04:55 Ns IV 11/16/17 04:45 1,000 mls ONCE ONE Administration Wide Open Calcium Gluconate 2 gm/ 70 mls @ 140 mls/hr 11/16/17 05:12 11/16/17 06:07 Dextrose IV 11/16/17 05:41 70 mls ONCE ONE Administration Sodium Chloride 1,000 mls @ 150 mls/hr 11/16/17 10:45 11/16/17 11:40 Ns IV 05/15/18 10:44 1,000 mls CONT RAYMOND Administration Sodium Chloride 500 mls @ 1,500 mls/hr 11/17/17 15:19 11/17/17 15:32 Ns IV 11/17/17 15:38 500 mls ONCE ONE Administration Albumin Human 100 mls @ 0 mls/hr 11/17/17 15:29 11/17/17 16:52 Flexbumin 25 % (Premix) IV 11/17/17 15:30 100 mls ONCE ONE Administration As Directed Sodium Chloride 500 mls @ 0 mls/hr 11/17/17 21:17 11/18/17 01:54 Ns IV 11/17/17 21:18 Not Given ONCE ONE As Directed Sodium Chloride 500 mls @ 0 mls/hr 11/18/17 00:32 Ns IV 11/18/17 01:33 PRN PRN PACU, Nausea/Vomiting Post-Op Wide Open Lidocaine HCl Confirm 11/17/17 21:43 Xylocaine-Mpf 2% Vial Administered 11/17/17 21:44 Dose 5 ml .ROUTE .STK-MED ONE Naloxone HCl 0.1 mg 11/18/17 00:32 Narcan IVP 11/18/17 01:32 Q2M PRN PACU Resp Rate <10/min Octreotide Acetate 50 mcg 11/17/17 20:51 11/18/17 01:36 Octreotide Acetate IVP 11/17/17 20:52 Not Given ONCE ONE Ondansetron HCl Confirm 11/17/17 23:50 Zofran Administered 11/17/17 23:51 Dose 4 mg .ROUTE .STK-MED ONE Ondansetron HCl 2 - 4 mg 11/18/17 00:32 Zofran IVP 11/18/17 01:33 Q10M PRN PACU, Nausea/Vomiting Pantoprazole Sodium 40 mg 11/15/17 23:45 11/16/17 21:26 Protonix PO 05/14/18 23:44 40 mg HS RAYMOND Administration Phenylephrine HCl 100 mcg 11/18/17 00:32 Neosynephrine IVP 11/18/17 01:32 .Q2M PRN PACU, Hypotension Propofol Confirm 11/17/17 21:34 Diprivan Administered 11/17/17 21:35 Dose 200 mg .ROUTE .STK-MED ONE Rocuronium [place] Confirm 11/17/17 21:43 Zemuron Administered 11/17/17 21:44 Dose 100 mg .ROUTE .STK-MED ONE Sodium Polystyrene Sulfonate 15 gm 11/16/17 05:11 11/16/17 05:22 Kayexalate PO 11/16/17 05:12 15 gm ONCE ONE Administration Physical Exam - Physical Exam General Appearance: alert Respiratory: lungs clear, normal breath sounds Cardiac/Chest: edema Abdomen: normal bowel sounds, non-tender, soft Skin: normal color, warm/dry Neuro/Psych: no motor/sensory deficits, alert, normal mood/affect, oriented x 3 ICD10 Worksheet Patient Problems: Problems Problem Status Onset Acute renal failure Acute Altered mental status Acute Hyperkalemia Acute Metastatic breast cancer Acute
--- NOTE | 2017-11-18 09:43 | HOSPPROG ---
Hospitalist Progress Note Assessment/Plan: 76 yo F w metastatic breast CA here w diarrhea, TARAH, hyperkalemia UGIB: w/w erosive tumor s/p BICAP and epi hct stable after 2 units this represents progression of underlying disease follow hct ppi 5 days abx hyperkalemia: TARAH plus ARB IVF hold arb received kayexalate trending down hypoglycemia: sulfonurea on hold TARAH: volume related IVF stopped last night given ascites follow continue to hold ARB neuropathy: resume gabapentin ascites: malignant hold on drainage bellly not tense breast CA; continue po chemo diarrhea: resolved proph: lmwh dispo: inpt Subjective: overnight scope w oozing tumor, no varices. case d/w Drs. Nuñez and Aurea Objective: Vital Signs Temp Pulse Resp BP Pulse Ox 36.8 C 106 H 19 129/56 H 97 11/18/17 08:00 11/18/17 08:00 11/18/17 08:00 11/18/17 08:00 11/18/17 08:00 Microbiology 11/15/17 20:26 Urine Culture - Final Urine,Clean Catch Klebsiella Varicola Laboratory Results 11/18/17 05:40 11/18/17 05:40 11/17/17 11/18/17 11/19/17 05:59 05:59 05:59 Intake Total 2250 1995 Output Total 3175 1150 Balance -925 845 PT 13.9 SEC (12.0-15.0) 11/15/17 18:26 INR 1.05 (0.83-1.16) 11/15/17 18:26 - Physical Exam Constitutional: no apparent distress, appears nourished Eyes: PERRL, anicteric sclera Ears, Nose, Mouth, Throat: moist mucous membranes, hearing normal Cardiovascular: regular rate and rhythym, no murmur, rub, or gallop Respiratory: no respiratory distress, no rales or rhonchi Gastrointestinal: normoactive bowel sounds, soft, non-tender abdomen, ascites Genitourinary: No joseph in urethra Skin: warm, normal color Musculoskeletal: full muscle strength Neurologic: AAOx3 ICD10 Worksheet Patient Problems: Problems Problem Status Onset Acute renal failure Acute Altered mental status Acute Hyperkalemia Acute Metastatic breast cancer Acute
--- NOTE | 2017-11-18 16:19 | ASMTCMCOM ---
CM Note CM Note Notes: Dr. Moss, oncology radiologist on 3 asking for help to arrange transport for patient to [facility] for emergent CT and radiation therapy. Spoke with manager infrastructure Elaine Sykes who asks that I set it up with [facility] and ask them to bill [facility] Contract services. PCS and facesheet provided to critical care unit manager. [place] division director in 30 minutes. CM to follow. Plan: TBD Date Signed: 11/18/2017 04:19 PM Electronically Signed By:Marcy Mccord RN
[2017-11-18] MEDS: ACETAMINOPHEN 325 MG TAB PO PRN (20:06)
--- NOTE | 2017-11-18 21:13 | GCON ---
[f rep st] CONSULTATION Ms. Ta is a 76-year-old patient who has a history of cirrhosis related to MASSEY. She developed ascites and has had some variceal banding procedures. An upper GI endoscopy in July 2017 showed patchy erythematous mucosa in the stomach, which was biopsied and appeared to show a lobular carcinoma infiltrating the gastric mucosa. The tumor was CK7 positive, CK20 negative.. It was ER positive, HER-2 was negative. A repeat procedure with biopsies again showed the same results. Mammograms and bilateral breast ultrasounds were unremarkable. A PET CT scan showed some subtle peritoneal carcinomatosis. A breast MRI was negative. She has required repeated paracentesis and Nikolski drain has been placed. It is unclear to me whether peritoneal cytology has been sent. She was felt to not be an ideal chemotherapy candidate related to her age, general condition, and liver dysfunction, although I note that the last transaminases I have access to were normal. She was started on letrozole which she has been on for about 2 weeks, and Ibrance which she started just a week or so ago. Yesterday she was seen in the clinic with diarrhea for a number of days, and was noted to have hyperkalemia and an elevated creatinine of 2.5. She was admitted and hydrated with improvement in her creatinine, however, last night developed hematochezia. Hemoglobin was 6.9. She was transfused 2 units of packed red blood cells. Central access was obtained. A repeat upper GI endoscopy showed diffuse granularity of the body of the stomach and proximal antrum with areas of oozing treated with epinephrine injection and BICAP. She does not seem to be actively bleeding at this point in time. She does have a few mouth sores related to the Ibrance. PAST MEDICAL HISTORY: Significant for diabetes, cirrhosis. PAST SURGICAL HISTORY: Surgeries include appendectomy, hysterectomy. SOCIAL HISTORY: She is a former smoker. PHYSICAL EXAMINATION: On physical exam she is a somewhat pale female, alert, accompanied by family. VITAL SIGNS: Blood pressure 111/49, respiratory rate 14 , saturations 97%. She is not icteric. HEENT: Pharynx is unremarkable. LUNGS : Clear. CARDIAC: Unremarkable. ABDOMEN: Benign. There is a Nikolski drain in place. LAB FINDINGS: Sodium is 139, current potassium 5.2, creatinine is 1, TSH mildly elevated at 8. Current white count is 1.7 with an ANC of 0.71. Hemoglobin 9.4, platelets are 81,000. IMPRESSION: Patient with an unusual presentation of apparent lobular carcinoma , metastatic to the stomach without a breast primary. She has been started on letrozole and Ibrance. She has had a recent, pretty significant GI bleed, presumably related to this process. Ibrance has been held the last 2-3 days, but she has continued on the letrozole. I think the concern is the potential for recurrent bleeding before she is able to get a response from Ibrance and letrozole, which is, of course, not certain and she has already had some toxicity from the Ibrance. It is possible she needs a dose reduction, and I note that her ANC is down. I think at this time we should continue the letrozole. Chemotherapy is a consideration but I would probably not institute at this time. I did discuss the case with Dr. Greene of Radiation Therapy with the idea of perhaps a palliative dose of radiation to the stomach over 4-5 treatments to try to decrease the risk of bleeding while we are awaiting a therapeutic affect. Dr. Greene will see the patient in consultation. Meanwhile we will continue with ICU monitoring. /[id number]/MODL MTDD
[2017-11-19] MEDS: PANTOPRAZOLE SODIUM 40 MG VIAL IVP SCH ×2 (09:09→20:53)
[2017-11-19] MEDS: GABAPENTIN 300 MG CAP PO SCH ×2 (09:09→20:54)
[2017-11-19] MEDS: POLYETHYLENE GLYCOL 3350 17 GM PKT PO SCH (09:10)
--- NOTE | 2017-11-19 09:33 | HOSPPROG ---
Hospitalist Progress Note Assessment/Plan: 76 yo F w metastatic breast CA here w diarrhea, TARAH, hyperkalemia UGIB: w/w erosive tumor s/p BICAP and epi hct stable after 2 units this represents progression of underlying disease follow hct ppi bid dy 3/5 abx onc to set up outpt XRT for local control hyperkalemia: TARAH plus ARB IVF hold arb received kayexalate trending down resolved hypoglycemia: sulfonurea on hold TARAH: volume related IVF stopped last night given ascites follow continue to hold ARB neuropathy: resume gabapentin ascites: malignant hold on drainage bellly not tense breast CA; continue po chemo diarrhea: resolved proph: lmwh dispo: inpt AVT: tele shows abrupt rise in HR to 150 no p waves on ekg (interp by me) resolved w adenosine after transfer to PCU UGIB: d/w dr arias follow hct q6h transfuse for hg < 8 iv ppi npo hugo avail for scope if refractory bleeding 45' crit care Subjective: case d/w dr bella. no further maroon stool Objective: Vital Signs Temp Pulse Resp BP Pulse Ox 36.6 C 107 H 20 128/62 H 97 11/19/17 07:45 11/19/17 08:10 11/19/17 07:45 11/19/17 07:45 11/19/17 07:45 Laboratory Results 11/19/17 04:40 11/19/17 04:40 11/18/17 11/19/17 11/20/17 05:59 05:59 05:59 Intake Total 1995 Output Total 1150 900 Balance 845 -900 PT 13.9 SEC (12.0-15.0) 11/15/17 18:26 INR 1.05 (0.83-1.16) 11/15/17 18:26 - Physical Exam Constitutional: no apparent distress, appears nourished Eyes: PERRL, anicteric sclera Ears, Nose, Mouth, Throat: moist mucous membranes, hearing normal Cardiovascular: regular rate and rhythym, no murmur, rub, or gallop Respiratory: no respiratory distress, no rales or rhonchi Gastrointestinal: normoactive bowel sounds, soft, non-tender abdomen, ascites Genitourinary: No joseph in urethra Skin: warm, normal color Musculoskeletal: full muscle strength, no muscle tenderness Neurologic: AAOx3, sensation intact bilaterally ICD10 Worksheet Patient Problems: Problems Problem Status Onset Acute renal failure Acute Altered mental status Acute Hyperkalemia Acute Metastatic breast cancer Acute
[2017-11-19] MEDS ORDERED: PANTOPRAZOLE SODIUM 40 MG VIAL IVP ONE (11:56)
[2017-11-19] MEDS ORDERED: NS 500 ML IV ONE (11:57)
[2017-11-19] MEDS: ACETAMINOPHEN 325 MG TAB PO PRN (12:08)
--- NOTE | 2017-11-19 12:32 | CPEKG ---
Heart Rate: 146 RR Interval: 411 P-R Interval: 120 QRSD Interval: 84 QT Interval: 316 QTC Interval: 493 P [place]: 0 QRS [place]: -68 T Wave [place]: 86 EKG Severity - ABNORMAL ECG - EKG Impression: SINUS TACHYCARDIA EKG Impression: VENTRICULAR PREMATURE COMPLEX EKG Impression: PROBABLE LEFT ATRIAL ABNORMALITY EKG Impression: LEFT ANTERIOR FASCICULAR BLOCK EKG Impression: BORDERLINE R WAVE PROGRESSION, ANTERIOR LEADS EKG Impression: BORDERLINE T ABNORMALITIES, LATERAL LEADS EKG Impression: BORDERLINE PROLONGED QT INTERVAL EKG Impression: COMPARED WITH 11/15/2017 HR FASTER Electronically Signed By: Madalyn Browne 20-Nov-2017 21:44:59
--- NOTE | 2017-11-19 12:51 | SOAPPROG ---
SOAP Progress Note Assessment/Plan: Assessment: 1. Gastric GI bleed-secondary to metastatic breast cancer. Hct appears stable. hemodynamically stable currently without signs of active rebleed. On letrozole and ibrance, but ibrance will be held in light of neutropenia. 2. Neutropenia-secondary to ibrance. she is to hold the ibrance for now until anc is above 1. She took it last night. I spoke to her and her family about holding if for now. Letrozole is ok to keep taking. Plan: Follow serial cbc's for signs of rebleed. would likely move forward with gastric XRT if rebled, but will hold for now. continue letrozole, hold ibrance If she develops fever, it would be considered neutropenic fever. 11/19/17 12:48 Subjective: feels much better, passing black stool Objective: Vital Signs Temp Pulse Resp BP Pulse Ox 37.0 C 147 H 20 113/74 97 11/19/17 11:38 11/19/17 11:38 11/19/17 11:38 11/19/17 11:38 11/19/17 11:38 Laboratory Results 11/19/17 11:58 11/19/17 04:40 11/18/17 11/19/17 11/20/17 05:59 05:59 05:59 Intake Total 1995 Output Total 1150 900 Balance 845 -900 PT 13.9 SEC (12.0-15.0) 11/15/17 18:26 INR 1.05 (0.83-1.16) 11/15/17 18:26 Physical Exam - Physical Exam General Appearance: alert, no apparent distress Respiratory: lungs clear Abdomen: non-tender, soft, distended Neuro/Psych: alert, oriented x 3 ICD10 Worksheet Patient Problems: Problems Problem Status Onset Acute renal failure Acute Altered mental status Acute Hyperkalemia Acute Metastatic breast cancer Acute
[2017-11-19] MEDS ORDERED: ADENOSINE 6 MG/2 ML VIAL ONE ×2 (13:44→13:45)
[2017-11-19] MEDS ORDERED: ADENOSINE 6 MG/2 ML VIAL IVP ONE (14:08)
--- NOTE | 2017-11-19 14:59 | ASMTCMCOM ---
CM Note CM Note Notes: 11/19/2017 Case Management Note Met w/pt and daughter Chelsea Elam to discuss d/c poc. Both are in agreement of need for home health. Faxed referrals to several agencies located near [facility]. Pt plans to stay with her daughter Chelsea at d/c. Chelsea Elam [address] [address] Case Management d/c poc: home with home care pending acceptance. Case Management to follow. Date Signed: 11/19/2017 02:58 PM Electronically Signed By:Deedee Edwards RN
[2017-11-19] MEDS ORDERED: PANTOPRAZOLE SODIUM 40 MG TAB PO SCH (21:00)
[2017-11-19] MEDS: LETROZOLE 2.5 MG TAB PO SCH (22:12)
[2017-11-20] MEDS ORDERED: ADENOSINE 6 MG/2 ML VIAL IVP ONE (01:37)
--- NOTE | 2017-11-20 02:07 | CPEKG ---
Heart Rate: 140 RR Interval: 429 P-R Interval: 68 QRSD Interval: 84 QT Interval: 336 QTC Interval: 513 P Cleveland: 0 QRS Cleveland: -64 T Wave Cleveland: 88 EKG Severity - ABNORMAL ECG - EKG Impression: SINUS TACHYCARDIA VS ECTOPIC ATRIAL TACHYCARDIA EKG Impression: LEFT ANTERIOR FASCICULAR BLOCK EKG Impression: CONSIDER LEFT VENTRICULAR HYPERTROPHY EKG Impression: PROLONGED QT INTERVAL EKG Impression: SIMILAR TO 11/19/2017 Electronically Signed By: Madalyn Browne 20-Nov-2017 21:44:14
--- NOTE | 2017-11-20 02:14 | HOSPPROG ---
Hospitalist Progress Note Assessment/Plan: XC: SVT noted again on monitor around 1:30 AM w/ HR ~140. Patient hemodynamically stable and asymptomatic. Arrhythmia terminated with adenosine 6 mg IV x1; will check electrolytes as well. Patient tolerated the medication well. Objective: Vital Signs Temp Pulse Resp BP Pulse Ox 36.7 C 141 H 14 139/76 H 97 11/19/17 23:24 11/20/17 01:10 11/20/17 01:10 11/20/17 01:10 11/20/17 01:10 Laboratory Results 11/19/17 22:12 11/19/17 04:40 11/18/17 11/19/17 11/20/17 05:59 05:59 05:59 Intake Total 1994 2250 Output Total 1150 900 Balance 845 -900 2250 PT 13.9 SEC (12.0-15.0) 11/15/17 18:26 INR 1.05 (0.83-1.16) 11/15/17 18:26 ICD10 Worksheet Patient Problems: Problems Problem Status Onset Acute renal failure Acute Altered mental status Acute Hyperkalemia Acute Metastatic breast cancer Acute
[2017-11-20 02:36] LABS: PLATELET COUNT 72 10^3/uL (150-400)
[2017-11-20] MEDS: GABAPENTIN 300 MG CAP PO SCH ×2 (08:27→20:57)
[2017-11-20] MEDS: PANTOPRAZOLE SODIUM 40 MG VIAL IVP SCH (08:27)
[2017-11-20] MEDS: POLYETHYLENE GLYCOL 3350 17 GM PKT PO SCH (08:32)
[2017-11-20] MEDS ORDERED: METOPROLOL TARTRATE 25 MG TAB PO SCH (09:00)
--- NOTE | 2017-11-20 09:25 | HOSPPROG ---
Hospitalist Progress Note Assessment/Plan: 76 yo F w metastatic breast CA here w diarrhea, TARAH, hyperkalemia SVT: start metoprolol 25 bid UGIB: w/w erosive tumor s/p BICAP and epi hct stable after 2 units this represents progression of underlying disease follow hct ppi bid dy 3/5 abx onc to set up outpt XRT for local control hyperkalemia: TARAH plus ARB IVF hold arb received kayexalate trending down resolved hypoglycemia: sulfonurea on hold TARAH: volume related IVF stopped last night given ascites follow continue to hold ARB neuropathy: resume gabapentin ascites: malignant hold on drainage bellly not tense breast CA; continue po chemo diarrhea: resolved proph: no LMWH dispo: inpt AVT: tele shows abrupt rise in HR to 150 no p waves on ekg (interp by me) resolved w adenosine after transfer to PCU UGIB: d/w dr arias follow hct q6h transfuse for hg < 8 iv ppi npo hugo avail for scope if refractory bleeding 45' crit care Subjective: requireed adenosine overnight for recurrent SVT. d/w dr falcon Objective: Vital Signs Temp Pulse Resp BP Pulse Ox 36.4 C 96 16 144/65 H 95 11/20/17 07:27 11/20/17 07:27 11/20/17 07:27 11/20/17 07:27 11/20/17 07:27 Laboratory Results 11/20/17 02:23 11/20/17 02:23 11/19/17 11/20/17 11/21/17 05:59 05:59 05:59 Intake Total 2500 250 Output Total 900 Balance -900 2500 250 PT 13.9 SEC (12.0-15.0) 11/15/17 18:26 INR 1.05 (0.83-1.16) 11/15/17 18:26 - Physical Exam Constitutional: no apparent distress, appears nourished Eyes: PERRL, anicteric sclera Ears, Nose, Mouth, Throat: moist mucous membranes, hearing normal Cardiovascular: regular rate and rhythym, no murmur, rub, or gallop Respiratory: no respiratory distress, no rales or rhonchi, clear to auscultation Gastrointestinal: normoactive bowel sounds, soft, non-tender abdomen Genitourinary: no bladder fullness, no bladder tenderness Skin: warm, normal color Musculoskeletal: full muscle strength Neurologic: AAOx3 ICD10 Worksheet Patient Problems: Problems Problem Status Onset Acute renal failure Acute Altered mental status Acute Hyperkalemia Acute Metastatic breast cancer Acute
[2017-11-20] MEDS: METOPROLOL TARTRATE 25 MG TAB PO SCH ×2 (10:10→20:57)
--- NOTE | 2017-11-20 15:14 | ASMTCMCOM ---
CM Note CM Note Notes: 11/20/2017 Case Management Note Phone call from [facility] accepting pt. Case Management d/c poc: home to daughter's house with [facility] Case Management to continue to follow. Date Signed: 11/20/2017 03:13 PM Electronically Signed By:Deedee Edwards RN
--- NOTE | 2017-11-20 16:38 | ECHO ---
[email or web address] [address] Main: [phone] Fax: Transthoracic Echocardiogram Name: TRENT WAY MR#: [id number] Study Date: 11/20/2017 Study Time: 12:50 PM Date of : 1940 Age: 76 year(s) Height: 157.5 cm (62 in.) Weight: 78.47 kg (173 lb.) BSA: 1.8 m2 Gender: Female Examination: Echo Indication: Breast CA, Supraventricular Tachycardia Image Quality: Contrast: Requested by: Constantin Myles BP: 112 mmHg/54 mmHg Heart Rate: Rhythm: Normal sinus rhythm Indication: Breast CA, Supraventricular Tachycardia Procedure Staff [employer] Operator: Miguel Ángel Jensen RDCS Reading Physician: Louis Ring MD Requesting Provider: Conclusions: No pericardial effusion. Concentric left ventricular hypertrophy with a outflow tract gradient of 33 mm of mercury noted in the mid left ventricular cavity. Diastolic dysfunction with tissue Doppler suggesting elevated filling pressures. Mitral valve calcification with a mean valvular gradient of 7 mm of mercury. Measurements: Chambers Valvular Assessment AV/MV Valvular Assessment TV/PV Normal Normal Normal Name Value Range Name Value Range Name Value Range Ao Collette (MM): 2.1 cm (2.2 cm-3.7 AV Vmax: 2.27 m/s (1 m/s-1.7 PV Vmax: 1.52 m/s (0.6 m/s-0.9 cm) m/s) m/s) IVSd (2D): 1.2 cm (0.6 cm-1.1 AV maxP mmHg ( - ) PV PGmax: 9 mmHg ( - ) cm) AV meanP mmHg ( - ) LVDd (2D): 3.4 cm (3.9 cm-5.3 MV E Vmax: 1.34 m/s ( - ) cm) MV A Vmax: 1.55 m/s ( - ) LVDs (2D): 1.9 cm (2.1 cm-4 MV E/A: 0.86 ( - ) cm) MV meanP mmHg ( - ) LVPWd (2D): 1.2 cm ( - ) LVEF (2D): 75 (>=54 %) Continued Measurements: Chambers Valvular Assessment AV/MV Name Value Name Value LADs Lon.3 cm MV E' Septal: 0.04 m/s LA Area: 21.2 cm2 MV E/E' Septal: 32.80 MV E/E' Lateral: 29.30 MV VTI: 71.20 cm AR VTI: 63.2 cm Patient: TRENT WAY Study Date: 11/20/2017 Page 1 of 2 12:50 PM Findings: Left Ventricle: Normal size left ventricle. Mild concentric LV hypertrophy. Global hypercontractility of the left ventricle. EF is 75 %. No regional wall motion abnormality. Diastolic dysfunction is present. . There is a mild left ventricular gradient at 33mmHg.. Right Ventricle: Normal size right ventricle. Normal RV function. Left Atrium: The left atrium is normal in size. Right Atrium: The right atrium is normal in size. Mitral Valve: Moderate mitral valve leaflet calcification is present. The mean MV PG is 7 mmHg.. Aortic Valve: The aortic valve is tri-leaflet. Mild aortic cusp calcification is noted. Tricuspid Valve: The tricuspid valve is normal in appearance and function. Pulmonic Valve: The pulmonic valve is normal in appearance. Mild pulmonic valve regurgitation is noted. Aorta: The aorta is normal. Pericardium: No pericardial effusion. There is a pleural effusion present. Exam Comments: There is a mid left venticular gradient of 33 mmHg.. (No Signature Object) Patient: TRENT WAY Study Date: 11/20/2017 Page 2 of 2 12:50 PM [id number]
[2017-11-20] MEDS: PANTOPRAZOLE SODIUM 40 MG TAB PO SCH (20:56)
[2017-11-20] MEDS: LETROZOLE 2.5 MG TAB PO SCH (20:57)
[2017-11-21] MEDS: PANTOPRAZOLE SODIUM 40 MG TAB PO SCH (08:46)
[2017-11-21] MEDS: GABAPENTIN 300 MG CAP PO SCH (08:47)
[2017-11-21] MEDS: METOPROLOL TARTRATE 25 MG TAB PO SCH (08:47)
[2017-11-21] MEDS: POLYETHYLENE GLYCOL 3350 17 GM PKT PO SCH (09:15)
[2017-11-21 11:26] VITALS: BP 101/52
[2017-11-21 11:35] LABS: PLATELET COUNT 58 10^3/uL (150-400)
[2017-11-21] MEDS: ACETAMINOPHEN 325 MG TAB PO PRN (11:51)
--- NOTE | 2017-11-21 12:57 | HOSPPROG ---
Hospitalist Progress Note Assessment/Plan: 76 yo F w metastatic breast CA here w diarrhea, TARAH, hyperkalemia SVT: start metoprolol 25 bid UGIB: w/w erosive tumor s/p BICAP and epi hct stable after 2 units this represents progression of underlying disease follow hct ppi bid dy 3/5 abx onc to set up outpt XRT for local control hyperkalemia: TARAH plus ARB IVF hold arb received kayexalate trending down resolved hypoglycemia: sulfonurea on hold TARAH: volume related IVF stopped last night given ascites follow continue to hold ARB neuropathy: resume gabapentin ascites: malignant hold on drainage bellly not tense breast CA; continue po chemo diarrhea: resolved proph: no LMWH dispo: inpt AVT: tele shows abrupt rise in HR to 150 no p waves on ekg (interp by me) resolved w adenosine after transfer to PCU home today; > 30 minutes on dc see dc summary Subjective: labs stable. ready for dc Objective: Vital Signs Temp Pulse Resp BP Pulse Ox 37.1 C 66 14 101/52 L 96 11/21/17 11:26 11/21/17 11:26 11/21/17 11:26 11/21/17 11:26 11/21/17 11:26 Laboratory Results 11/21/17 11:20 11/21/17 11:20 11/20/17 11/21/17 11/22/17 05:59 05:59 05:59 Intake Total 2500 800 300 Output Total 1000 Balance 2500 -200 300 PT 13.9 SEC (12.0-15.0) 11/15/17 18:26 INR 1.05 (0.83-1.16) 11/15/17 18:26 - Physical Exam Constitutional: no apparent distress, appears nourished Eyes: PERRL, anicteric sclera Ears, Nose, Mouth, Throat: moist mucous membranes, hearing normal Cardiovascular: regular rate and rhythym, no murmur, rub, or gallop Respiratory: no respiratory distress, no rales or rhonchi Gastrointestinal: normoactive bowel sounds, soft, non-tender abdomen Genitourinary: no bladder fullness, No joseph in urethra Skin: warm Musculoskeletal: full muscle strength ICD10 Worksheet Patient Problems: Problems Problem Status Onset Acute renal failure Acute Altered mental status Acute Hyperkalemia Acute Metastatic breast cancer Acute
--- NOTE | 2017-11-21 13:22 | GDS ---
[f rep st] DISCHARGE SUMMARY DISCHARGE DIAGNOSES: 1. Metastatic breast cancer without breast primary. 2. Cirrhosis secondary to nonalcoholic steatohepatitis. 3. Acute kidney injury. 4. Hyperkalemia. 5. Supraventricular tachycardia. 6. Upper gastrointestinal bleed secondary to cancer. 7. Intracavitary left ventricular gradient. Please see admission history and physical by Dr. Roque Rios. Patient presented with abnorm al lab test in clinic. She has had creatinine of 2.2 up from a normal baseline to creatinine 6.6. S he is on an ARB and a beta jaiden at baseline. These are held. The patient was volume resuscitated with improvement in her kidney function. She developed a red stool. She underwent upper endoscopy which revealed tumor in the stomach that was injected with epinephrine and ultimately stopped bleedin g. She required 2 units of packed red cells while here. She developed 2 episodes of SVT that respon ded well to adenosine. Echocardiogram showed intracavitary gradient but otherwise unremarkable. The re is no significant pleural effusion. She is discharged home today. I have discontinued her losartan, given her hyperkalemia and her good blood pressure control here on just one medicine, a beta jaiden. I have given her a twice daily PPI up from daily. She has followup with Dr. Yovani Rico of Oncology. There was some consideration of having IR see her for embolization her stomach, but given the cessati on of her bleeding, I elected to not do this as with her cirrhosis, I am concerned about her ability to heal the wound of embolization. /[id number]/MODL
--- NOTE | 2017-11-21 13:41 | SOAPPROG ---
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 May need palliative xrt to area to prevent further bleeding. Has f/u with Dr. Rico tomorrow. * Gastric GI bleed: due to metastatic breast cancer. Hct stable; hemodynamically stable and no signs of active rebleed. * Neutropenia secondary to ibrance: She is to hold the ibrance until anc is above 1000 and may need dose reductions. I spoke to her daughter on the phone. Letrozole is ok to keep taking. No fever thus far. Will f/u with Dr. Rico. They are to call with any fever > 101. Subjective: No acute complaints today. Denies mouth sores or diarrhea. Objective: Vital Signs Temp Pulse Resp BP Pulse Ox 37.1 C 66 14 101/52 L 96 11/21/17 11:26 11/21/17 11:26 11/21/17 11:26 11/21/17 11:26 11/21/17 11:26 Laboratory Results 11/21/17 11:20 11/21/17 11:20 11/20/17 11/21/17 11/22/17 05:59 05:59 05:59 Intake Total 2500 800 300 Output Total 1000 Balance 2500 -200 300 PT 13.9 SEC (12.0-15.0) 11/15/17 18:26 INR 1.05 (0.83-1.16) 11/15/17 18:26 Laboratory Tests 11/20/17 11/21/17 02:23 11:20 WBC 1.37 L 1.05 L Plt Count 72 L 58 L Absolute Neuts (auto) 0.31 L Absolute Seg Neuts 0.62 L Physical Exam - Physical Exam General Appearance: no apparent distress EENT: pharynx normal Respiratory: lungs clear Cardiac/Chest: regular rate, rhythm Abdomen: non-tender, soft ICD10 Worksheet Patient Problems: Problems Problem Status Onset Acute renal failure Acute Altered mental status Acute Hyperkalemia Acute Metastatic breast cancer Acute
--- NOTE | 2017-11-21 13:58 | PDIAF ---
- Diagnosis Diagnosis: metastatic breast cancer Code Status: Full Code - Medication Management Discharge Medications: Medications to Continue on Transfer Gabapentin [Neurontin 300 MG (*)] 300 mg PO BID 10/31/17 [Last Taken 11/15/17] Glimepiride [Amaryl] 4 mg PO BID 10/31/17 [Last Taken 11/15/17] Metoprolol Tartrate [Lopressor 50 mg (*)] 50 mg PO BID 10/31/17 [Last Taken 10/28] Pioglitazone HCl 45 mg PO DAILY 10/31/17 [Last Taken 11/15/17] Letrozole [Femara 2.5 mg (*)] 2.5 mg PO HS 11/15/17 [Last Taken 11/14/17] Palbociclib [Ibrance] 125 mg PO HS 11/15/17 [Last Taken 11/14/17] Pantoprazole Sodium [Protonix 40mg (*)] 40 mg PO BID #60 tab 11/21/17 [Last Taken Unknown] Polyethylene Glycol 3350 [Miralax 17 gm (*)] 17 gm PO DAILY pkt 11/21/17 [Last Taken Unknown] Discharge Medications: Refer to the Discharge Home Medication list for PRN reason. - Orders Services needed: Home Care, Registered Nurse, Physical Therapy, Occupational Therapy Home Care Face to Face: I certify that this patient was under my care and that I had the required [id number] encounter meeting the encounter requirements on the discharge day. My findings support the fact that the patient is homebound as defined in Home Care Face to Face Continued: CMS Chapter 7 Medicare Benefits Manual 30.1.1 , The condition of the patient is such that there exists a normal inability to leave home and consequently, leaving home would require a considerable and taxing effort. Isolation Type: Chemotherapy Isolation, Neutropenic Isolation - Follow Up Care Current Providers and Referrals: Hudson Augustine DO [Primary Care Provider] - As per Instructions
--- NOTE | 2017-11-21 14:10 | ASDISCHSUM ---
Discharge Information Plan Status:Home with Home Health Medically Cleared to Leave:11/21/2017 Discharge Date:11/21/2017 CM D/C Disposition:Home Health Service ADT D/C Disposition: Projected Discharge Date:11/20/2017 11:00 AM Transportation at D/C:Family Discharge Delay Reason: Follow-Up Date:11/20/2017 11:00 AM Discharge Slot: Final Diagnosis: Placement Information Referral Type:*Home Health Care Services Referral ID:[id number] Provider Name:[facility] ([facility]) Address 1:[address] [address] Address 2: City:[place] Selection Factors: State:[place] Referral Type:Palliative Care Referral ID:[id number] Provider Name:[facility] Address 1:[address] Phone Number: Address 2: Fax Number: [facility] Selection Factors: State:[place] Patient Contact Information Contact Name:DEVON Relationship:Daughter Address: Work Phone: City: [facility] Phone: State/Zip Code: Email: Financial Information Financial Class:Medicare Advantage Plans Primary Plan Desc:Propertybase Primary Plan Number:[id number] Secondary Plan Desc: Secondary Plan Number: Assessment Information LACE LACE Length of stay for Answers: 4-6 days current admission Acuity / Level of Answers: Yes Care: Did the patient have an inpatient admission? Comorbidities - select Answers: Diabetes (uncontrolled or all that apply controlled) Other Notes: Metastatic breast cance r # of Emergency department Answers: 1-2 visits in the last 6 months Score: 10 Date Signed: 11/21/2017 02:07 PM Electronically Signed By:Deedee Edwards RN [facility] Progress Note CM Note CM Note Notes: 11/16/2017 Case Management Note Discussed pt during rounds this morning. Pt admitted for ARF, hyperkalemia, breast cancer with mets to the abdomen. Attempted to meet with pt multiple times today. Pt requesting meeting tomorrow to discuss discharge needs. Case Management d/c poc: to be determined. Case Management to follow. Date Signed: 11/16/2017 04:36 PM Electronically Signed By:Deedee Edwards RN [facility] CM Progress Note CM Note CM Note Notes: Dr. Moss, oncology radiologist on asking for help to arrange transport for patient to [facility] for emergent CT and radiation therapy. Spoke with console manager Elaine Sykes who asks that I set it up with [facility] and ask them to bill [facility] Contract services. PCS and facesheet provided to community health coordinator. city dispatch supervisor in 30 minutes. CM to follow. Plan: TBD Date Signed: 11/18/2017 04:19 PM Electronically Signed By:Marcy Mccord RN [facility] CM Progress Note CM Note CM Note Notes: 11/19/2017 Case Management Note Met w/pt and daughter Chelsea Elam to discuss d/c poc. Both are in agreement of need for home health. Faxed referrals to several agencies located near [facility]. Pt plans to stay with her daughter Chelsea at d/c. Chelsea Elam [address] [address] Case Management d/c poc: home with home care pending acceptance. Case Management to follow. Date Signed: 11/19/2017 02:58 PM Electronically Signed By:Deedee Edwards RN [facility] CM Progress Note CM Note CM Note Notes: 11/20/2017 Case Management Note Phone call from [facility] accepting pt. Case Management d/c poc: home to daughter's house with [facility] Case Management to continue to follow. Date Signed: 11/20/2017 03:13 PM Electronically Signed By:Deedee Edwards RN Case Management Discharge Plan Note Case Management Discharge Discharge Order Complete? Answers: Yes Patient to Obtain Answers: via Family Medications Transportation Arranged Answers: Family/Friends Faxed Final Orders Answers: Yes Agency/Facility Transfer Answers: Yes Report Printed & Faxed to Receiving Agency Family Notified Answers: Yes Discharge Comments Notes: 11/21/2017 Case Management Note Pt to discharge to her daughter's house with [facility]. Daughter to transport home. Final orders faxed. [facility] rep visited pt in the hospital this morning. Date Signed: 11/21/2017 02:09 PM Electronically Signed By:Deedee Edwards RN Intervention Information
--- NOTE | 2017-11-21 14:42 | ASMTCMCOM ---
CM Note CM Note Notes: 11/21/2017 Case Management Note Met w/pt and daughter Chelsea for Palliative Care follow up. Pt requested referral to outpatient Palliative. Pt daughter resides in [facility] and pt resides in [facility], therefore [facility] is unable to service. Faxed referral through [facility] to [facility]. Left for [facility]. Notified [facility] palliative team. Date Signed: 11/21/2017 02:41 PM Electronically Signed By:Deedee Edwards RN
== END 2017-11-21 14:56 | disposition home or self-care (01) | DRG 683 ==
LOC: F2W 21:13 → F2N 11-18 00:37 → F3E 11-18 16:06 → F2W 11-19 13:30
PROVIDERS: ADMIT Internal Medicine; ATTEND Internal Medicine
PROC: 0W3P8ZZ Control Bleeding in Gastrointestinal Tract, Via Natural or Artificial Opening Endoscopic (ICD-10-PCS; principal; 2017-11-17 22:00)
PROC: 30233N1 Transfusion of Nonautologous Red Blood Cells into Peripheral Vein, Percutaneous Approach (ICD-10-PCS; 2017-11-18)
DX: N17.9 Acute kidney failure, unspecified (principal); C78.5 Secondary malignant neoplasm of large intestine and rectum; K92.2 Gastrointestinal hemorrhage, unspecified; I47.1 Supraventricular tachycardia; I42.1 Obstructive hypertrophic cardiomyopathy; C79.81 Secondary malignant neoplasm of breast; E87.5 Hyperkalemia; E86.9 Volume depletion, unspecified; K75.81 Nonalcoholic steatohepatitis (NASH); K74.4 Secondary biliary cirrhosis; E11.649 Type 2 diabetes mellitus with hypoglycemia without coma; Z87.891 Personal history of nicotine dependence; D70.2 Other drug-induced agranulocytosis
CPT/HCPCS: 82435-PO; 82565-PO; 82947-PO; 84132-PO; 84295-PO; 84484-PO; 84520-PO; 85014-PO; 96374; 97110-GP; 97116-GP; 97161-GP; 97166-GO; 97535-GO; G8978-GP-CK; G8979-GP-CJ; G8987-GO-CJ; G8988-GO-CI; G8989-GO-CI; J0153; J0171; J0610; J0696; J1170; J1644; J2354; J2405; J2704; J3010; P9016; P9047

== ENCOUNTER → 2017-11-23 | Outpatient (CLI) | payer OTHER | LOC: FIMAGING 15:33 | PROVIDERS: ATTEND Internal Medicine Hematology & Oncology | DX: R60.9 Edema, unspecified (principal) ==

== ENCOUNTER 2017-12-08 12:47 | Inpatient (IN) | payer OTHER ==
--- NOTE | 2017-12-08 13:38 | EDPHY ---
H & P Time Seen by Provider: 12/08/17 13:20 HPI/ROS: CHIEF COMPLAINT: Weakness and confusion HISTORY OF PRESENT ILLNESS: History of metastatic breast cancer and cirrhosis, type 2 diabetes. Presents with 2 and half weeks of bilateral leg redness, a little bit of a cough. She has been much more weak and confused over the last 24 hr. Today she was found unable to walk. Yesterday she was on the floor. Patient just says that she"feels like crap."Denies urinary symptoms, denies chest pain. She is short of breath. Symptoms weakness are severe. Not better worse with anything. Much worse over the last 24 hr. REVIEW OF SYSTEMS: Eye: no change in vision ENT: no sore throat Cardiac: no chest pain or syncope Pulmonary: HPI Abdomen: No diarrhea abdominal pain, did vomit last night Musculoskeletal: Bilateral leg swelling Skin: Bilateral leg redness after a dog bite to the right corrales 2 and half weeks ago with recent negative ultrasound for DVT. Neuro: no headache Constitutional: no fever : no urinary symptoms A comprehensive 10 point review of systems is otherwise negative aside from elements mentioned in the history of present illness. PAST MEDICAL HISTORY: Includes cirrhosis with a drain, metastatic breast cancer , diabetes, hysterectomy Social history: Here with daughter and son-in-law General Appearance: Alert and conversant, cooperative. Eyes: No scleral icterus. ENT, Mouth: Normal mucous membranes. Respiratory: Decreased breath sounds bilaterally. Cardiovascular: Regular rate and rhythm. Gastrointestinal: Mid abdominal tenderness without rebound or guarding. Neurological: Alert, face symmetric, normal motor and sensory in extremities. No asterixis. Skin: Redness of both lower extremities but not hot to the touch and no lymphangitis. Musculoskeletal: Bilateral 2 to 3+ peripheral edema. Psychiatric: Not agitated. Emergency Department course/MDM: Head CT, EKG, urinalysis. CBC chemistry ammonia liver function tests, leg ultrasound and chest x-ray. Requires admission for severe weakness. 1458: Negative head CT for metastatic disease bleed or mass. Dr. Rosales 1716: Results discussed, peritoneal fluid pending, troponin elevated. Oral aspirin and admission for further evaluation. 1728: Does not have large numbers of PMN cells on peritoneal fluid, but does have abdominal tenderness. Will give IV ceftriaxone pending cultures. Smoking Status: Former smoker Constitutional: Initial Vital Signs Temperature (C) 36.7 C 12/08/17 12:52 Heart Rate 78 12/08/17 12:52 Respiratory Rate 18 12/08/17 12:52 Blood Pressure 115/70 12/08/17 12:52 O2 Sat (%) 93 12/08/17 12:52 O2 Delivery Mode Nasal Cannula O2 (L/minute) 2 Allergies/Adverse Reactions: codeine Allergy (Severe, Verified 12/08/17 12:50) Vomiting Home Medications: Medication Instructions Recorded Gabapentin [Neurontin 300 MG (*)] 300 mg PO BID 10/31/17 Glimepiride [Amaryl] 4 mg PO BID 10/31/17 Metoprolol Tartrate [Lopressor 50 50 mg PO BID 10/31/17 mg (*)] Pioglitazone HCl 45 mg PO DAILY 10/31/17 Letrozole [Femara 2.5 mg (*)] 2.5 mg PO HS 11/15/17 Pantoprazole Sodium [Protonix 40mg 40 mg PO BID #60 tab 11/21/17 (*)] Polyethylene Glycol 3350 [Miralax 17 gm PO DAILY pkt 11/21/17 17 gm (*)] Medical Decision Making - Diagnostics EKG Interpretation: My EKG sinus rhythm with left anterior fascicular block, late anterior RS transition. Rate 77. Imaging Results: Imaging Impressions Chest X-Ray 12/08/17 13:34 Impression: 1. Elevation right hemidiaphragm with adjacent compressive atelectatic change right base. 2. Mild prominent interstitial markings left mid to lower lung that is actually similar to the prior study. Consider chronic mild interstitial lung disease or mild interstitial edema/infiltrate. Head CT 12/08/17 13:34 Impression: 1. Mild atrophy. 2. No acute hemorrhage, hydrocephalus, or mass effect. 3. Cerebrovascular atherosclerosis. 4. No definite acute infarct. 5. Moderate microvascular ischemic gliosis. 6. No epidural or subdural hematoma. 7. Consider MRI of the brain, if there is continued clinical concern. Findings and recommendations discussed with Emergency Department physician, Albino Stanley M.D., at 1457 hours, on December 08, 2017. Final report concurs with initial preliminary interpretation. E:amm Extremity Venous Study 12/08/17 13:38 Impression: No deep venous thrombosis in the right and left lower extremity. Findings discussed with Albino Stanley M.D. at 15:34 hour, 12/08/2017. Imaging: Discussed imaging studies w/ call center consultant Radiologist Differential Diagnosis: Differential diagnosis considered for weakness including but not limited to electrolyte abnormality, depression, anxiety, CVA, spinal cord abnormality, and infectious causes. Consult/Admit Bed Type: [place] [id number] - Data Points Laboratory Results: Laboratory Results 12/08/17 15:35 12/08/17 15:35 12/08/17 12/08/17 12/08/17 15:45 15:35 15:35 WBC RBC Hgb Hct MCV MCH MCHC RDW Plt Count MPV Neut % (Auto) Lymph % (Auto) Carter % (Auto) Eos % (Auto) Baso % (Auto) Nucleat RBC Rel Count Absolute Neuts (auto) Absolute Lymphs (auto) Absolute Monos (auto) Absolute Eos (auto) Absolute Basos (auto) Absolute Nucleated RBC Immature Gran % Seg Neutrophils % Band Neutrophils % Lymphocytes % Monocytes % Eosinophils % Basophils % Metamyelocytes % Myelocytes % Promyelocytes % Blast Cells % Immature Gran # Absolute Seg Neuts Absolute Band Neuts Absolute Lymphocytes Absolute Monocytes Absolute Eosinophils Absolute Basophils Absolute Metamyelocyte Absolute Myelocytes Absolute Promyelocytes Absolute Plasma Cells Absolute Blast Cells Plasma Cells % Platelet Estimate Polychromasia Oval Macrocytes Sodium 134 mEq/L L mEq/L (135-145) Potassium 3.6 mEq/L mEq/L (3.3-5.0) Chloride 104 mEq/L mEq/L (97-110) Carbon Dioxide 24 mEq/l mEq/l (22-31) Anion Gap 6 mEq/L L mEq/L (8-16) BUN 24 mg/dL H mg/dL (7-23) Creatinine 1.0 mg/dL mg/dL (0.6-1.0) Estimated GFR 54 Glucose 47 mg/dL L mg/dL (70-100) Calcium 8.1 mg/dL L mg/dL (8.5-10.4) Total Bilirubin 1.5 mg/dL H mg/dL (0.1-1.4) Conjugated Bilirubin 0.8 mg/dL H mg/dL (0.0-0.5) Unconjugated Bilirubin 0.7 mg/dL mg/dL (0.0-1.1) AST 38 IU/L IU/L (14-46) ALT 34 IU/L IU/L (9-52) Alkaline Phosphatase 77 IU/L IU/L (38-126) Ammonia 10.0 uMOL/L uMOL/L (9.0-30.0) Creatine Kinase 239 IU/L H IU/L (0-156) CK-MB (CK-2) Fraction 1.26 ng/mL ng/mL (0.00-4.55) CK-MB (CK-2) % 0.5 % % (0.0-4.0) Creatine Kinase Interp NEGATIVE (NEGATIVE) Troponin I 0.125 ng/mL H ng/mL (0.000-0.034) Total Protein 5.1 g/dL L g/dL (6.3-8.2) Albumin 2.4 g/dL L g/dL (3.5-5.0) Fluid Meso/Macro/Carter % 50 % L % (70-100) Fl Pathologist Review Pending Peritoneal Source PERITONEAL Peritoneal Color YELLOW H (CLS/PALE YL) Peritoneal Appearance SL. HAZY H (CLEAR) Peritoneal WBC 108 /mm3 H /mm3 (0-0) Peritoneal RBC 10 /mm3 H /mm3 (0-0) Periton Lymphocytes % 50 % H % (0-18) 12/08/17 15:35 WBC 2.51 10^3/uL L 10^3/uL (3.80-9.50) RBC 3.06 10^6/uL L 10^6/uL (4.18-5.33) Hgb 10.4 g/dL L g/dL (12.6-16.3) Hct 32.4 % L % (38.0-47.0) MCV 105.9 fL H fL (81.5-99.8) MCH 34.0 pg pg (27.9-34.1) MCHC 32.1 g/dL L g/dL (32.4-36.7) RDW 21.2 % H % (11.5-15.2) Plt Count 211 10^3/uL 10^3/uL (150-400) MPV 9.8 fL fL (8.7-11.7) Neut % (Auto) Not Reported Lymph % (Auto) Not Reported Carter % (Auto) Not Reported Eos % (Auto) Not Reported Baso % (Auto) Not Reported Nucleat RBC Rel Count Not Reported Absolute Neuts (auto) Not Reported Absolute Lymphs (auto) Not Reported Absolute Monos (auto) Not Reported Absolute Eos (auto) Not Reported Absolute Basos (auto) Not Reported Absolute Nucleated RBC Not Reported Immature Gran % Not Reported Seg Neutrophils % 86.0 % % Band Neutrophils % 0 % % Lymphocytes % 11.0 % % Monocytes % 3.0 % % Eosinophils % 0 % % Basophils % 0 % % Metamyelocytes % 0 % % Myelocytes % 0 % % Promyelocytes % 0 % % Blast Cells % 0 % % Immature Gran # Not Reported Absolute Seg Neuts 2.16 10^/uL 10^/uL (1.70-6.50) Absolute Band Neuts 0.00 10^3/uL 10^3/uL (0.00-0.70) Absolute Lymphocytes 0.28 10^3/uL L 10^3/uL (1.00-3.00) Absolute Monocytes 0.08 10^3/uL L 10^3/uL (0.30-0.80) Absolute Eosinophils 0.00 10^3/uL L 10^3/uL (0.03-0.40) Absolute Basophils 0.00 10^3/uL L 10^3/uL (0.02-0.10) Absolute Metamyelocyte 0.00 10^3/mL 10^3/mL (0.00-0.00) Absolute Myelocytes 0.00 10^3/mL 10^3/mL (0.00-0.00) Absolute Promyelocytes 0.00 10^3/uL 10^3/uL (0.00-0.00) Absolute Plasma Cells 0.00 10^3/uL 10^3/uL (0.00-0.00) Absolute Blast Cells 0.00 10^3/uL 10^3/uL (0.00-0.00) Plasma Cells % 0 % % Platelet Estimate ADEQUATE (ADEQ) Polychromasia 1+ H Oval Macrocytes 2+ H Sodium Potassium Chloride Carbon Dioxide Anion Gap BUN Creatinine Estimated GFR Glucose Calcium Total Bilirubin Conjugated Bilirubin Unconjugated Bilirubin AST ALT Alkaline Phosphatase Ammonia Creatine Kinase CK-MB (CK-2) Fraction CK-MB (CK-2) % Creatine Kinase Interp Troponin I Total Protein Albumin Fluid Meso/Macro/Carter % Fl Pathologist Review Peritoneal Source Peritoneal Color Peritoneal Appearance Peritoneal WBC Peritoneal RBC Periton Lymphocytes % Medications Given: Discontinued Medications Aspirin (Aspirin) 324 mg PO EDNOW ONE Stop: 12/08/17 17:18 Last Admin: 12/08/17 17:43 Dose: 324 mg Ceftriaxone Sodium/Dextrose (Rocephin 1 Gm (Premix)) 50 mls @ 100 mls/hr IV EDNOW ONE PRN Reason: Protocol Stop: 12/08/17 17:58 Last Admin: 12/08/17 17:49 Dose: 50 mls Departure - Departure Disposition: [facility] Inpatient Acute Clinical Impression: Weakness, Troponin level elevated Condition: Fair
[2017-12-08 15:49] LABS: PLATELET COUNT 211 10^3/uL (150-400)
[2017-12-08 16:03] LABS: CREATINE KINASE 239 IU/L (0-156)
--- NOTE | 2017-12-08 16:15 | CPEKG ---
Heart Rate: 77 RR Interval: 779 P-R Interval: 136 QRSD Interval: 92 QT Interval: 432 QTC Interval: 489 P Moriarty: 49 QRS Moriarty: -44 T Wave Moriarty: 45 EKG Severity - ABNORMAL ECG - EKG Impression: SINUS RHYTHM EKG Impression: PROBABLE LEFT ATRIAL ABNORMALITY EKG Impression: LEFT ANTERIOR FASCICULAR BLOCK EKG Impression: PROBABLE LEFT VENTRICULAR HYPERTROPHY EKG Impression: CONSIDER ANTERIOR INFARCT EKG Impression: BORDERLINE PROLONGED QT INTERVAL Electronically Signed By: Albino Stanley 08-Dec-2017 16:47:07
[2017-12-08] MEDS ORDERED: ONDANSETRON 4 MG/2 ML VIAL IVP PRN (17:05)
[2017-12-08] MEDS ORDERED: ONDANSETRON DISINTEGRATING 4 MG TAB PO PRN (17:05)
[2017-12-08] MEDS ORDERED: ASPIRIN 81 MG CHEWABLE TAB PO ONE (17:17)
[2017-12-08] MEDS ORDERED: D50W 25 GM/50 ML SYR IVP PRN (19:50)
[2017-12-08] MEDS ORDERED: NS 1,000 ML IV SCH (20:00)
--- NOTE | 2017-12-08 20:47 | GHP ---
[f rep st] HISTORY AND PHYSICAL DATE OF ADMISSION: 12/08/2017 PRIMARY ONCOLOGIST: Dr. Rico CHIEF COMPLAINT: Fatigue, right leg cellulitis. HISTORY OF PRESENT ILLNESS: A 76-year-old female with metastatic breast cancer ER positive, cirrhosis due to MASSEY, diabetes, brought in by daughter due to severe fatigue. In the past 24 hours she has become so fatigued that she cannot even sit up or get out of bed. She has been off her chemotherapy for 3 weeks due to low counts. She is always cold, per family. She has had increased swelling of her bilateral legs over the last several weeks. Noticed that it is red today even more so since being here in the emergency room. Patient did not notice it before. She has had a decreased appetite. Denies cough, chest pain. Occasional shortness of breath. No nausea, vomiting , or diarrhea. No dysuria, urinary frequency, or urgency. She was admitted to [facility] 11/15 through 11/28 with upper GI bleed secondary to her cancer. EGD showed tumor in the stomach which was injected with epi and cautery. She was transfused 2 units of blood. Echocardiogram showed intracavitary gradient, but otherwise unremarkable. She fell yesterday, per family. Did not have prodromal symptoms or loss of consciousness. REVIEW OF SYSTEMS: I completed a 10-point review of systems. It is negative except as noted in the HPI. PAST MEDICAL HISTORY: 1. 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 2. Hypertension. 3. Cirrhosis secondary to Massey. Had prophylactic varicocele banding in August and September. 4. Recent upper GI bleed, status post cautery. 5. GERD. 6. Echocardiogram 11/20/2017 with LVH with gradient 33 mm. No wall motion abnormalities. 7. Ultrasound left leg 11/23 negative. PAST SURGICAL HISTORY: Appendectomy, hysterectomy. FAMILY HISTORY: Mother and father both had MIs in their 60s. SOCIAL HISTORY: Has been living with her daughter since recent discharge. No alcohol, tobacco, or illicits. ALLERGIES: Codeine. HOME MEDICATIONS: Amaryl 4 mg twice daily, Neurontin 300 mg twice daily, MiraLAX, Actos 45 mg daily, PPI 40 mg twice daily, metoprolol 50 mg twice daily , Femara 2.5 mg at bedtime. PHYSICAL EXAMINATION: VITAL SIGNS: Temperature 36.8, blood pressure 143/69, heart rate is in the 60s, respirations 18, 100% on 2 L. GENERAL: Fatigued, pale. Mild rigors. HEENT: PERRLA. EOMI. Dry mucous membranes. CARDIOVASCULAR: Regular rate and rhythm. LUNGS: With crackles at the right base. ABDOMEN: Mildly distended. She has a drain in place. Epigastric tenderness. Bruising over lower abdomen. MUSCULOSKELETAL: She is moving all 4 extremities. Large ecchymoses over right lumbar region. NEUROLOGIC: 2 through 12 intact. PSYCHIATRIC: Alert and oriented x3. Flat affect. LABS: 1. WBCs 2, hemoglobin 10, hematocrit 32, MCV 105, platelets 211. Sodium 134, potassium 3.6, chloride 104, carbon dioxide 24, BUN 24, creatinine is 1 ( baseline 0.8-0.9), glucose is 47, calcium is 8.1, total bilirubin is 1.5, conjugated 0.8. Troponin 0.125. 2. Lower extremity ultrasound negative for DVT. Head CT: No acute hemorrhage. Chest. 3. x-ray is personally reviewed by me. Blunting of the right costophrenic angle. 4. EKG is personally reviewed by me. Normal sinus rhythm. T-wave abnormalities in lead III. ST flattening in V5 and V6, which was seen on prior. ASSESSMENT AND PLAN: 1. Right leg cellulitis: Has open lesion on her corrales. No purulence. Treat with IV Ancef. Blood cultures pending, as is having some rigors. 2. Indeterminate troponin. She denies any chest pain. Suspect this is demand with acute illness. We will repeat EKG and troponin. Monitor on telemetry. She had an echo 11/20 that showed no wall motion abnormalities. 3. Metastatic ER positive breast cancer. She is holding her chemo medications with recent neutropenia. She is to follow up with Dr. Rico on Tuesday. 4. Recent gastric gastrointestinal bleed. This was due to cancer invasion to her stomach. Her H and H are stable. She denies any bleeding. 5. Gastroesophageal reflux disease. Proton pump inhibitor. 6. Mildly decompensated cirrhosis: This is secondary to nonalcoholic steatohepatitis. She does have a drain placed that she drains every other day. Peritoneal fluid was not consistent with spontaneous bacterial peritonitis. 7. Hypertension. Resume metoprolol tomorrow. 8. Fall: This was mechanical in nature. Physical therapy, occupational therapy. 9. Diet: Regular. 10. Deep venous thrombosis prophylaxis. Sequential compression devices. 11. Hypoglycemia: due to infection, decreased PO. q6hr glucose 12. DM: hold oral meds DISPOSITION: Patient warrants inpatient admission given acute cellulitis requiring IV antibiotics. Also needs PT, OT. /[id number]/MODL MTDD
[2017-12-08] MEDS: MELATONIN 3 MG TAB PO SCH (22:29)
[2017-12-08] MEDS: ACETAMINOPHEN 325 MG TAB PO PRN (22:29)
[2017-12-08] MEDS: PANTOPRAZOLE SODIUM 40 MG TAB PO SCH (22:29)
[2017-12-08] MEDS: GABAPENTIN 300 MG CAP PO SCH (22:29)
[2017-12-08] MEDS ORDERED: D50W 25 GM/50 ML VIAL ONE (22:51)
[2017-12-08] MEDS ORDERED: D5W 1/2 NS 1,000 ML IV SCH (23:30)
[2017-12-08] MEDS: D50W 25 GM/50 ML VIAL IVP PRN (23:43)
[2017-12-09] MEDS ORDERED: D10W 1,000 ML IV SCH (02:45)
[2017-12-09] MEDS: D50W 25 GM/50 ML VIAL IVP PRN ×2 (02:47→06:39)
[2017-12-09] MEDS: INSULIN LISPRO 100 UNIT/ML SC SCH ×3 (08:23→18:40)
[2017-12-09] MEDS: PANTOPRAZOLE SODIUM 40 MG TAB PO SCH ×2 (10:38→21:39)
[2017-12-09] MEDS: METOPROLOL TARTRATE 50 MG TAB PO SCH ×2 (10:38→21:39)
[2017-12-09] MEDS: GABAPENTIN 300 MG CAP PO SCH ×2 (10:38→21:39)
[2017-12-09] MEDS: POLYETHYLENE GLYCOL 3350 17 GM PKT PO SCH (10:39)
--- NOTE | 2017-12-09 13:51 | ECHO ---
[email or web address] [address] [address] Main: [phone] Fax: Transthoracic Echocardiogram Name: TRENT WAY MR#: [id number] Study Date: 12/09/2017 Study Time: 01:07 PM Date of : 1940 Age: 76 year(s) Height: 157.5 cm (62 in.) Weight: 77.11 kg (170 lb.) BSA: 1.78 m2 Gender: Female Examination: Limited Echo Indication: LTD look for WMA Image Quality: Adequate Contrast: Requested by: Karley Srinivasan BP: 105 mmHg/48 mmHg Heart Rate: Rhythm: Indication: LTD look for WMA Procedure Staff Resource Conservationist: Harini Beatty [facility] Reading Physician: Louis Ring MD Requesting Provider: Conclusions: No pericardial effusion. Hypercontractile left ventricle with no regional wall motion abnormalities. Ejection fraction 77%. Measurements: Chambers Valvular Assessment AV/MV Valvular Assessment TV/PV Normal Normal Normal Name Value Range Name Value Range Name Value Range IVSd (2D): 1.0 cm (0.6 cm-1.1 cm) LVDd (2D): 3.1 cm (3.9 cm-5.3 cm) LVDs (2D): 2.0 cm (2.1 cm-4 cm) LVPWd (2D): 1.2 cm ( - ) LVEF (BP): 77 % (>=55 %) Continued Measurements: Findings: Left Ventricle: The left ventricle cavity is small. Mild to moderate LVH. Normal global systolic LV function. EF is 77 %. No regional wall motion abnormality. Pericardium: No pericardial effusion. There is pericardial fat. There is a pleural effusion present. (No Signature Object) Patient: TRENT WAY Study Date: 12/09/2017 Page 1 of 2 01:07 PM Patient: TRENT WAY Study Date: 12/09/2017 Page 2 of 2 01:07 PM [id number]
--- NOTE | 2017-12-09 14:46 | WOCRNPDOC ---
WOCRN Advanced Assessment Note - Skin Integrity Problem, Advanced Assess Right Anterior Lower Leg Dressing Type: Open to Air Closure Description: Not Approximated Exudate Amount: Minimal Exudate Color: Brown, Reddish/Yellow Exudate Characteristic(s): Dried Marizol Wound Tissue: Blanching, Erythema, Swollen Marizol Wound Swelling: Mild Wound Bed Color: Brown, Red Wound Edges: Epithelizing Site Measurement - Head-to-Toe Length X Width X Depth (cm): 1x0.5xscab Skin Integrity Problem Comment: Wound bed cleaned with normal saline and patted dry with gauze. Patient stated that a dog jumped up and the claw cut open her leg. Wound is within large area of erythema to entire right calf. Patient states that erythema is improved, as it no longer is as far as original marker outline, and is less painful. Wound care will sign off on this patient. Please reconsult PRN.
--- NOTE | 2017-12-09 15:27 | HOSPPROG ---
Hospitalist Progress Note Assessment/Plan: 76yo F with hx of metastatic breast cancer, cirrhosis 22/ NAFLD, DM presenting with fatigue and swelling and redness in RLE # # RLE cellulitis: started on ancef with improvement overnight, wound care consulted, cultures from wound showing staph epi and blood cultures with ngtd, continue current mgmt for now # hypoglycemia; with blood sugars persistently low yesterday, as low as 40s. Holding glimerpiride and pioglitazone, checking A1c to determine if hypoglycemic agents needed # elevated trop: indeterminant and without chest pain, appreciate cardiology consultation, patient will f/u with cardiology as an OP, no wall motion abnormalities noted on echo and EF preserved # fatigue: improved, suspect largely related to infection as above # cirrhosis: 2/2 NAFLD, LFTs notable for low albumin/low protein, some e/o volume overload # hyponatremia: in setting of cirrhosis, mild # hx of recent GI bleed: nothing to suggest active bleeding #GERD: continue PPI # IP status, will need > 48 hours stay for eval/mgmt of above Patient new to my care. Further hx obtained from patients sister present at bedside and daughter on phone. Care plan reviewed with cardiology Subjective: no significant overnight events, patient still fatigued but less so , leg feels better Objective: Vital Signs Temp Pulse Resp BP Pulse Ox 36.4 C 79 12 105/48 L 94 12/09/17 11:42 12/09/17 11:42 12/09/17 11:42 12/09/17 11:42 12/09/17 11:42 Microbiology 12/08/17 17:34 Gram Stain - Final Peritoneal Fluid - Aspirate Laboratory Results 12/09/17 06:20 12/08/17 12/09/17 12/10/17 05:59 05:59 05:59 Intake Total 170 480 Output Total 920 200 Balance -750 280 awake alert nad anicteric op clear rrr no mrg cta b soft nt nd rle with erythema/edema to mid calf and 2+ pitting oriented appropriate ICD10 Worksheet Patient Problems: Problems Problem Status Onset Hyperkalemia Acute Acute renal failure Acute Altered mental status Acute Metastatic breast cancer Acute Weakness Acute Troponin level elevated Acute
--- NOTE | 2017-12-09 15:42 | PDMN ---
Medical Necessity Medical necessity: Pt meets inpt criteria per MD order 12/08/17 and MCG M-70, Cellulitis requiring IV ABX's and w/high risk comorbid conditions including metastatic breast cancer, neutropenia, cirrhosis
--- NOTE | 2017-12-09 16:00 | ASMTCMCOM ---
CM Note CM Note Notes: Chart reviewed. Met with patient who when last discharged declined SNF and moved in with he daughter. She is now admitted with profound weakness and lower extemities cellulitis. Therapies are recommending SNF rehab for patient. Met with patient who states understanding of need for SNF to reach her goal prior to going home. She is speaking about someone [facility]. I informed her that isn't an option. Spoke with daughter Chelsea and she would like the SNF to be more towards her home. I reviewed choices with her and will leave a list of the facilities in the room with her mother. CM to follow. Plan: to SNF Date Signed: 12/09/2017 04:00 PM Electronically Signed By:Marcy Mccord RN
--- NOTE | 2017-12-09 16:09 | ASMTCMCOM ---
CM Note CM Note Notes: 12/09/2017 Case Management Note Phone call from [facility]. Pt is currently open with them. Made referral to update [facility]. [facility] requested d/c info so they can support pt after d/c. Pt is current with [facility]. Notified of admission to [facility]. Pt will d/c to SNF rehab. Case Management d/c poc: to SNF rehab pending acceptance. Case Management to follow. Date Signed: 12/09/2017 04:08 PM Electronically Signed By:Deedee Edwards RN
--- NOTE | 2017-12-09 16:12 | GCON ---
[f rep st] CONSULTATION DATE OF CONSULTATION: 12/09/2017 REASON FOR CONSULTATION: Indeterminate troponins. HISTORY OF PRESENT ILLNESS: This is a pleasant 76-year-old female whom we were asked to consult on f or indeterminate troponins by Dr. Sarah Correa. Troponin levels are 0.125 and 0.10. The patient presented with complaints of fatigue and right leg cellulitis. 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 She is brought into the ED by her daughter due to severe fatigue over the last 24 hours. The patient does state that she can't get out of bed. She denies any chest pain, nausea/vomiting, or radiating pain or any exertional ayleen rtness of breath. She is a patient of Dr. Camille Vogel who follows her for hypertension. She is currently on metoprolol. PAST MEDICAL HISTORY: 1. 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 2. Hypertension. 3. Cirrhosis secondary to MASSEY. The patient has a drain. 4. Recent upper GI bleed, status post cautery. 5. GERD. PAST SURGICAL HISTORY: Appendectomy, hysterectomy. FAMILY HISTORY: Mother and father both had MIs in their 60s. SOCIAL HISTORY: Se is a former smoker. Lives with her daughter. Denies any alcohol or illicit drug use. MEDICATIONS: Please see EMR for further details. ALLERGIES: Codeine. CARDIAC RISK FACTORS: Include diabetes, hypertension, age over 65. PHYSICAL EXAMINATION: VITAL SIGNS: Blood pressure 105/48, heart rate 79, O2 saturation 94% on room air. GENERAL: Pleasant, well-nourished, well-groomed female lying in the hospital bed in no acute d istress. Obese body habitus. HEENT: Atraumatic, normocephalic. No gross hearing deficit. Pupils equal and round. No scleral icterus. Moist mucous membranes. RESPIRATORY: Slightly diminished won ath sounds bilaterally without wheezes, rhonchi, or rales. CARDIOVASCULAR: Regular rate and rhythm without heaves, thrills, lifts. 2+ peripheral edema. ABDOMEN: Soft. Bowel sounds present. SKIN: Warm and dry. Right lower leg erythema. NEURO: Alert and oriented. PSYCH: Appropriate mood and affect. ASSESSMENT: This is a 76-year-old female whom we are consulting on for indeterminate troponin of 0.1 25 and 0.100. Patient currently denies any symptoms of chest pain, syncope, nausea, vomiting, or rad iating pain. Her cardiac risk factors include diabetes, hypertension, age over 65. Her limited echo today showed no pericardial effusion, hypercontractile left ventricular with no regional wall motion abnormalities. Ejection fraction of 77%. EKG showed sinus rhythm, rate of 77, and left anterior fa scicular block. PLAN: 1. Indeterminate troponin levels are trending down. The patient is currently denying any symptoms o f ACS. We have offered a stress test to be done in the hospital or in an outpatient setting. The helder field has declined and would like to follow up with her hose cementer. 2. Right leg cellulitis. The patient is on IV Ancef. Hospitalist following. 3. Metastatic ER positive breast cancer. The patient is following up with Dr. Rico. 4. Diabetes. Recommendations to follow per hospitalist. /[id number]/MODL
[2017-12-09] MEDS: ACETAMINOPHEN 325 MG TAB PO PRN (21:39)
[2017-12-09] MEDS: MELATONIN 3 MG TAB PO SCH (21:39)
[2017-12-10] MEDS: INSULIN LISPRO 100 UNIT/ML SC SCH ×3 (09:31→17:12)
[2017-12-10] MEDS: METOPROLOL TARTRATE 50 MG TAB PO SCH ×2 (09:32→21:03)
[2017-12-10] MEDS: GABAPENTIN 300 MG CAP PO SCH ×2 (09:32→21:03)
[2017-12-10] MEDS: POLYETHYLENE GLYCOL 3350 17 GM PKT PO SCH ×2 (09:32→09:36)
[2017-12-10] MEDS: PANTOPRAZOLE SODIUM 40 MG TAB PO SCH ×2 (09:32→21:04)
--- NOTE | 2017-12-10 12:37 | ASMTCMCOM ---
CM Note CM Note Notes: [facility] has accepted pt. So far no other SNFs have. Met with pt and dtr Rosario to discuss. Pt's other dtr Chelsea sandoval tour the Center and let CM know. Will make referral to [facility] for pt as well asrequest a red lipstick anu. CM to follow Date Signed: 12/10/2017 12:37 PM Electronically Signed By:Berna Billings LCSW
--- NOTE | 2017-12-10 14:28 | HOSPPROG ---
Hospitalist Progress Note Assessment/Plan: 76yo F with hx of metastatic breast cancer, cirrhosis 22/ NAFLD, DM presenting with fatigue and swelling and redness in RLE # RLE cellulitis: started on ancef with improvement overnight, wound care consulted, cultures from wound showing staph epi and blood cultures with ngtd, continue current mgmt for now # hypoglycemia: with blood sugars persistently low on arrival, as low as 40s. Hgb A1c of 5 and will discontinue glimerpiride and pioglitazone as suspect this is no longer needed # metastatic breast cancer: with resultant malignant ascites and Wright drain in place, continue prn drainage per routine # elevated trop: indeterminant and without chest pain, appreciate cardiology consultation, patient will f/u with cardiology as an OP, no wall motion abnormalities noted on echo and EF preserved # neutropenia: mild on arrival and 2/2 chemotherapy (ibrance given recently, has been on hold 2/2 neutropenia), will recheck cbc in am # fatigue: improved, suspect multifactorial and in the setting of hypoglycemia as above as well as infection, improving # cirrhosis: 2/2 NAFLD, LFTs notable for low albumin/low protein, some e/o volume overload # hyponatremia: in setting of cirrhosis, mild, will repeat BMP in am # hx of recent GI bleed: nothing to suggest active bleeding #GERD: continue PPI # IP status, will need > 48 hours stay for eval/mgmt of above Subjective: no significant overnight events, patient notes that she is currently feeling a bit better, leg is less red and less painful Objective: Vital Signs Temp Pulse Resp BP Pulse Ox 36.3 C 69 12 110/48 L 94 12/10/17 11:03 12/10/17 11:03 12/10/17 11:03 12/10/17 11:03 12/10/17 11:03 Microbiology 12/08/17 17:34 Gram Stain - Final Peritoneal Fluid - Aspirate Laboratory Results 12/09/17 06:20 12/09/17 12/10/17 12/11/17 05:59 05:59 05:59 Intake Total 170 1510 Output Total 920 300 Balance -750 1210 awake alert nad anicteric op clear rrr no mrg cta b soft nt nd rle with erythema/edema to mid calf and 2+ pitting oriented appropriate ICD10 Worksheet Patient Problems: Problems Problem Status Onset Troponin level elevated Acute Weakness Acute Acute renal failure Acute Altered mental status Acute Hyperkalemia Acute Metastatic breast cancer Acute
[2017-12-10] MEDS: MELATONIN 3 MG TAB PO SCH (21:04)
[2017-12-11] MEDS: ACETAMINOPHEN 325 MG TAB PO PRN ×2 (01:35→21:57)
[2017-12-11 04:39] LABS: PLATELET COUNT 176 10^3/uL (150-400)
[2017-12-11] MEDS: INSULIN LISPRO 100 UNIT/ML SC SCH ×2 (07:15→13:46)
[2017-12-11] MEDS: POLYETHYLENE GLYCOL 3350 17 GM PKT PO SCH (08:43)
[2017-12-11] MEDS: METOPROLOL TARTRATE 50 MG TAB PO SCH ×2 (09:05→21:57)
[2017-12-11] MEDS: GABAPENTIN 300 MG CAP PO SCH ×2 (09:05→21:57)
[2017-12-11] MEDS: PANTOPRAZOLE SODIUM 40 MG TAB PO SCH ×2 (09:05→21:57)
[2017-12-11] MEDS: FUROSEMIDE 20 MG/2 ML VIAL IVP SCH ×2 (10:35→16:56)
--- NOTE | 2017-12-11 11:38 | ASMTCMCOM ---
CM Note CM Note Notes: Pt[facility] dtr Isabel chose [facility] [place]. DC possible tomorrow. Radha from [facility] asked that pt bring her Femara breast cancer med if she restarts it. Cm to follow. Date Signed: 12/11/2017 11:37 AM Electronically Signed By:Berna Billings LCSW
--- NOTE | 2017-12-11 13:56 | HOSPPROG ---
Hospitalist Progress Note Assessment/Plan: 76yo F with hx of metastatic breast cancer, cirrhosis 22/ NAFLD, DM presenting with fatigue and swelling and redness in RLE # RLE cellulitis: started on ancef with continued improvement, wound care consulted, cultures from wound showing staph epi and blood cultures with ngtd, continue current mgmt for now, if still improved in am will transition to oral abx in anticipation of discharge # hypoglycemia: with blood sugars persistently low on arrival, as low as 40s. Hgb A1c of 5 and will discontinue glimerpiride and pioglitazone, discussed that she should have a repeat a1c in 3 months to further evaluate whether this needs to be resumed # metastatic breast cancer: with resultant malignant ascites and Jeremy drain in place, continue prn drainage per routine # elevated trop: indeterminant and without chest pain, appreciate cardiology consultation, patient will f/u with cardiology as an OP, no wall motion abnormalities noted on echo and EF preserved # neutropenia: mild on arrival and 2/2 chemotherapy (ibrance given recently, has been on hold 2/2 neutropenia), will recheck cbc in am # fatigue: improved, suspect multifactorial and in the setting of hypoglycemia as above as well as infection, improving # cirrhosis: 2/2 NAFLD, LFTs notable for low albumin/low protein, some e/o volume overload # BLE edema: in setting of cirrhosis and likely related to same, today increased from prior and will give lasix today # hyponatremia: in setting of cirrhosis, mild, stable # hx of recent GI bleed: nothing to suggest active bleeding #GERD: continue PPI # IP status Subjective: no significant overnight events, patient notes feeling a bit worse today with new n/v and increased swelling in her ble Objective: Vital Signs Temp Pulse Resp BP Pulse Ox 37.1 C 69 16 101/45 L 94 12/11/17 11:37 12/11/17 11:37 12/11/17 11:37 12/11/17 11:37 12/11/17 11:37 Microbiology 12/08/17 17:34 Gram Stain - Final Peritoneal Fluid - Aspirate Body Fluid Culture - Final Staphylococcus Epidermidis Laboratory Results 12/11/17 04:05 12/11/17 04:05 12/10/17 12/11/17 12/12/17 05:59 05:59 05:59 Intake Total 1510 1650 Output Total 300 1800 Balance 1210 -150 awake alert nad anicteric op clear rrr no mrg cta b soft nt nd rle with erythema/edema to mid calf and 2+ pitting oriented appropriate - Time Spent With Patient Time Spent with Patient: greater than 35 minutes Time Spent with Patient: Greater than 35 minutes spent on this patients care, greater than 50% of time spent counseling, educating, and coordinating care regarding the above mentioned plan. ICD10 Worksheet Patient Problems: Problems Problem Status Onset Troponin level elevated Acute Weakness Acute Acute renal failure Acute Altered mental status Acute Hyperkalemia Acute Metastatic breast cancer Acute
[2017-12-11] MEDS: MELATONIN 3 MG TAB PO SCH (21:59)
[2017-12-12] MEDS ORDERED: SODIUM CL NASAL 45 ML BTL EACHNARE PRN (09:44)
[2017-12-12] MEDS: PANTOPRAZOLE SODIUM 40 MG TAB PO SCH (09:50)
[2017-12-12] MEDS: METOPROLOL TARTRATE 50 MG TAB PO SCH (09:50)
[2017-12-12] MEDS: FUROSEMIDE 20 MG/2 ML VIAL IVP SCH ×2 (09:50→14:27)
[2017-12-12] MEDS: GABAPENTIN 300 MG CAP PO SCH (09:51)
[2017-12-12] MEDS: POLYETHYLENE GLYCOL 3350 17 GM PKT PO SCH (09:51)
[2017-12-12 11:08] VITALS: BP 109/47
--- NOTE | 2017-12-12 12:05 | PDIAF ---
- Diagnosis Code Status: Full Code - Medication Management Discharge Medications: Medications to Continue on Transfer Gabapentin [Neurontin 300 MG (*)] 300 mg PO BID 10/31/17 [Last Taken 12/08/17 09 :00] Metoprolol Tartrate [Lopressor 50 mg (*)] 50 mg PO BID 10/31/17 [Last Taken 09:00] Letrozole [Femara 2.5 mg (*)] 2.5 mg PO HS 11/15/17 [Last Taken 12/07/17] Pantoprazole Sodium [Protonix 40mg (*)] 40 mg PO BID #60 tab 11/21/17 [Last Taken 12/08/17 09:00] Polyethylene Glycol 3350 [Miralax 17 gm (*)] 17 gm PO DAILY pkt 11/21/17 [Last Taken 12/08/17] Acetaminophen [Tylenol 325mg (*)] 650 mg PO Q4HRS PRN tab 12/12/17 [Last Taken Unknown] Cephalexin [Keflex (*)] 500 mg PO Q6H #28 cap 12/12/17 [Last Taken Unknown] Doxycycline Hyclate 100 mg PO BID #14 tablet 12/12/17 [Last Taken Unknown] Furosemide [Lasix 20 MG (*)] 20 mg PO DAILY #30 tab 12/12/17 [Last Taken Unknown ] Melatonin [Melatonin 3 MG (*)] 3 mg PO HS tab 12/12/17 [Last Taken Unknown] Sodium Cl Nasal [Beauregard [place] (*)] 1 spray EACHNARE PRN PRN btl 12/12/17 [Last Taken Unknown] Discharge Medications: Refer to the Discharge Home Medication list for PRN reason. - Orders Services needed: Registered Nurse, Certified Garden Implement Mechanic, Physical Therapy, Occupational Therapy Isolation Type: Chemotherapy Isolation, Neutropenic Isolation Diet Recommendation: ADA 2200 consistent carb Weigh Patient: weekly - Labs/Radiology BMP Date: 12/15/17 CBC w/diff Date: 12/15/17 - Follow Up Care Current Providers and Referrals: Hudson Augustine DO [Primary Care Provider] - As per Instructions
--- NOTE | 2017-12-12 12:05 | PDDCSUM ---
Discharge Summary Discharge Summary: Dates of service 12/08-12/12/17 Consultations: cardiology Procedures performed: echocardiogram Hospital course by problem: 76yo F with hx of metastatic breast cancer, cirrhosis 22/ NAFLD, DM presenting with fatigue and swelling and redness in RLE # RLE cellulitis: started on ancef with continued improvement, wound care consulted, cultures from wound showing staph epi and blood cultures with ngtd, improved significantly in house and transitioned to oral abx doxy/keflex to complete 10 day course # hypoglycemia: with blood sugars persistently low on arrival, as low as 40s. Hgb A1c of 5 and will discontinue glimerpiride and pioglitazone, discussed that she should have a repeat a1c in 3 months to further evaluate whether some DM meds need to be resumed though suspect with A1c that low she can likely be diet controlled # metastatic breast cancer: with resultant malignant ascites and Quin[place] drain in place, continue prn drainage per routine # elevated trop: indeterminant and without chest pain, appreciate cardiology consultation, patient will f/u with cardiology as an OP, no wall motion abnormalities noted on echo and EF preserved # neutropenia: mild on arrival and 2/2 chemotherapy (ibrance given recently, has been on hold 2/2 neutropenia), counts improving, f/u scheduled with oncology # fatigue: improved, suspect multifactorial and in the setting of hypoglycemia as above as well as infection, improving # cirrhosis: 2/2 NAFLD, LFTs notable for low albumin/low protein, some e/o volume overload # BLE edema: in setting of cirrhosis and likely related to same, today increased from prior and will give lasix today # hyponatremia: in setting of cirrhosis, mild, stable # hx of recent GI bleed: nothing to suggest active bleeding #GERD: continue PPI dc home f/u with PCP, oncology Items for f/u: -repeat A1c in 3 months -continued improvement of RLE > 35 min spent in dc more than half in coordination of care
--- NOTE | 2017-12-12 12:29 | ASMTLACE ---
LACE Length of stay for Answers: 3 days current admission Acuity / Level of Answers: Yes Care: Did the patient have an inpatient admission? Comorbidities - select Answers: Any tumor (including all that apply lymphoma or leukemia) Diabetes (uncontrolled or controlled) Other Notes: Cirrhosis; HTN # of Emergency department Answers: 1-2 visits in the last 6 months Score: 11 Date Signed: 12/12/2017 12:29 PM Electronically Signed By:Deedee Edwards RN
[2017-12-12] MEDS ORDERED: DOXYCYCLINE HYCLATE 100 MG CAP/TAB PO ONE (13:59)
[2017-12-12] MEDS ORDERED: CEPHALEXIN 500 MG CAP PO SCH (14:00)
--- NOTE | 2017-12-12 15:58 | ASMTDCNOTE ---
Case Management Discharge Discharge Order Complete? Answers: Yes Patient to Obtain Answers: Other Notes: [facility] Medications Transportation Arranged Answers: Family/Friends Faxed Final Orders Answers: Yes Agency/Facility Transfer Answers: Yes Report Printed & Faxed to Receiving Agency Family Notified Answers: Yes Notes: in room Discharge Comments Notes: 12/12/2017 Case Management Note Faxed final orders to [facility]. Contacted [facility] for transport who informed case management that daughter Chelsea will transport pt to facility. Confirmed with pt. Notified [facility] of discharge to [facility]. There are no further case management d/c needs. Date Signed: 12/12/2017 03:57 PM Electronically Signed By:Deedee Edwards RN
--- NOTE | 2017-12-12 16:03 | ASDISCHSUM ---
Discharge Information Plan Status:SNF Medically Cleared to Leave:12/12/2017 Discharge Date:12/12/2017 CM D/C Disposition:Snf Facility ADT D/C Disposition:Snf Facility Projected Discharge Date:01/11/2018 11:00 AM Transportation at D/C: Discharge Delay Reason: Follow-Up Date:01/11/2018 11:00 AM Discharge Slot: Final Diagnosis: Placement Information Referral Type:*Retirement/SNF Referral ID:[id number] Provider Name:[facility] Address 1:[address] Address 2: City:[place] Selection Factors: State:[place] Referral Type:*Home Health Care Services Referral ID:[id number] Provider Name: Address 1: Phone Number: Address 2: Fax Number: City: Selection Factors: State: Referral Type:Palliative Care Referral ID:-[id number] Provider Name:[facility] Address 1:[address] Phone Number: Address 2: Fax Number: [facility]:[place] Selection Factors: State:[place] Patient Contact Information Contact Name:DEVON Relationship:Daughter Address: Work Phone: City: [facility] Phone: [facility] Code: Email: Financial Information Financial Class:Medicare Advantage Plans Primary Plan Desc:[employer] Primary Plan Number:[id number] Secondary Plan Desc: Secondary Plan Number: Assessment Information LACE LACE Length of stay for Answers: 3 days current admission Acuity / Level of Answers: Yes Care: Did the patient have an inpatient admission? Comorbidities - select Answers: Any tumor (including all that apply lymphoma or leukemia) Diabetes (uncontrolled or controlled) Other Notes: Cirrhosis; HTN # of Emergency department Answers: 1-2 visits in the last 6 months Score: 11 Date Signed: 12/12/2017 12:29 PM Electronically Signed By:Deedee Edwards RN [facility] CM Progress Note CM Note CM Note Notes: Chart reviewed. Met with patient who when last discharged declined SNF and moved in with he daughter. She is now admitted with profound weakness and lower extemities cellulitis. Therapies are recommending SNF rehab for patient. Met with patient who states understanding of need for SNF to reach her goal prior to going home. She is speaking about someone [facility]. I informed her that isn't an option. Spoke with daughter Chelsea and she would like the SNF to be more towards her home. I reviewed choices with her and will leave a list of the facilities in the room with her mother. CM to follow. Plan: to SNF Date Signed: 12/09/2017 04:00 PM Electronically Signed By:Marcy Mccord RN [facility] CM Progress Note CM Note CM Note Notes: 12/09/2017 Case Management Note Phone call from [facility]. Pt is currently open with them. Made referral to update Sukhjinder. Sukhjinder requested d/c info so they can support pt after d/c. Pt is current with [facility]. Notified of admission to [facility]. Pt will d/c to SNF rehab. Case Management d/c poc: to SNF rehab pending acceptance. Case Management to follow. Date Signed: 12/09/2017 04:08 PM Electronically Signed By:Deedee Edwards RN [facility] CM Progress Note CM Note CM Note Notes: [facility] pt[facility] Met with pt and dtr Rosario to discuss. Pt's other dtr Chelsea sandoval tour the [facility] and let CM know. Will make referral to [facility] for pt as well astiarra brennan. CM to follow Date Signed: 12/10/2017 12:37 PM Electronically Signed By:Berna Billings LCSW [facility] CM Progress Note CM Note CM Note Notes: [facility] dtr Isabel [facility] [place]. DC possible tomorrow. [facility] asked that pt bring her Femara breast cancer med if she restarts it. Cm to follow. Date Signed: 12/11/2017 11:37 AM Electronically Signed By:Berna Billings LCSW Case Management Discharge Plan Note Case Management Discharge Discharge Order Complete? Answers: Yes Patient to Obtain Answers: Other Notes: [facility] Medications Transportation Arranged Answers: Family/Friends Faxed Final Orders Answers: Yes Agency/Facility Transfer Answers: Yes Report Printed & Faxed to Receiving Agency Family Notified Answers: Yes Notes: in room Discharge Comments Notes: 12/12/2017 Case Management Note Faxed final orders to [facility]. Contacted [facility] for transport who informed case management that daughter Chelsea will transport pt to facility. Confirmed with pt. Notified Sukhjinder Deleon of discharge to [facility]. There are no further case management d/c needs. Date Signed: 12/12/2017 03:57 PM Electronically Signed By:Deedee Edwards RN Intervention Information Intervention Type:*IM-Signed Date of Service:12/12/2017 03:02 PM Patient Type:Inpatient Staff Member:Josephine Oliveira Hours: Discipline: Severity: Comment:
== END 2017-12-12 16:12 | DRG 603 ==
LOC: F2W 18:05
PROVIDERS: ADMIT Internal Medicine; ATTEND Internal Medicine
DX: L03.115 Cellulitis of right lower limb (principal); C79.81 Secondary malignant neoplasm of breast; C78.5 Secondary malignant neoplasm of large intestine and rectum; Z17.0 Estrogen receptor positive status [ER+]; K75.81 Nonalcoholic steatohepatitis (NASH); K74.4 Secondary biliary cirrhosis; K21.9 Gastro-esophageal reflux disease without esophagitis; I10 Essential (primary) hypertension; E11.649 Type 2 diabetes mellitus with hypoglycemia without coma
CPT/HCPCS: 97116-GP; 97161-GP; 97166-GO; 97530-GO; 97530-GP; 97535-GO; G8978-GP-CK; G8979-GP-CJ; G8987-GO-CK; G8988-GO-CI; J0690; J0696; J1815; J1940; J2405